=== PATIENT | female | born 1980 | race Caucasian/White ===

== ENCOUNTER → 2016-10-09 | Outpatient (CLI) | payer BC ==
[~2016-10-09] MED LIST: ALPR-411 PO; THYR65TA PO
== END | disposition home or self-care (01) ==
LOC: C.PAPS 12:12
PROVIDERS: ATTEND Obstetrics & Gynecology
DX: Z01.419 Encounter for gynecological examination (general) (routine) without abnormal findings (principal)

== ENCOUNTER → 2016-10-13 | Outpatient (CLI) | payer BC ==
[2016-10-13 16:10] LABS: THYROID STIMULATING HORMONE 3.62 uIu/ml (0.300-4.500)
[2016-10-13 16:12] LABS: PROLACTIN 7.28 ng/mL
== END | disposition home or self-care (01) ==
LOC: C.LAB1850 14:18
PROVIDERS: ATTEND Obstetrics & Gynecology
DX: E06.3 Autoimmune thyroiditis (principal); N97.9 Female infertility, unspecified

== ENCOUNTER → 2016-11-12 | Outpatient (CLI) | payer BC ==
--- NOTE | 2016-11-12 11:30 | DIAGNOSTIC IMAGING REPORT ---
CHEST 2 VIEWS ROUTINE CLINICAL HISTORY: FATIGUE change in mental status COMPARISON STUDY: 10/02/2015 FINDINGS: The bones soft tissues and hemidiaphragms are normal. The cardiomediastinal silhouette is normal. The lungs are clear. The pulmonary vasculature is normal. IMPRESSION: Negative chest. Electronically signed by: Silverio Crump M.D. 11/12/2016 11:29 AM Dictated Date/Time: 11/12/2016 11:29 AM
== END | disposition home or self-care (01) ==
LOC: C.RADBC 11:12
PROVIDERS: ATTEND Physician Assistant
DX: R53.83 Other fatigue (principal)

== ENCOUNTER → 2016-11-13 | Outpatient (CLI) | payer BC ==
[2016-11-13 13:08] LABS: BASO % 0.2 %; BASO ABS # 0.01 K/uL (0-0.2); COMPLETE YES; EOS % 0.9 %; HEMATOCRIT 38.3 % (37-47); LYMPH % 33.1 %; MEAN CELL VOLUME 86.3 fL (80-100); MEAN CORPUSCULAR HEMOGLOBIN 29.3 pg (25-34); MEAN CORPUSCULAR HGB CONC 33.9 g/dl (32-36); MEAN PLATELET VOLUME 9.9 fL (7.4-10.4); MONO % 9.3 %; NEUT % 56.5 %; PLATELET COUNT 293 K/uL (130-400); RED BLOOD COUNT 4.44 M/uL (4.2-5.4); WHITE BLOOD COUNT 4.53 K/uL (4.8-10.8)
[2016-11-13 13:44] LABS: ALT/SGPT 18 U/L (12-78); BLOOD UREA NITROGEN 12 mg/dl (7-18); BUN/CREATININE RATIO 18.5 (10-20); CALCIUM 9.2 mg/dl (8.5-10.1); CARBON DIOXIDE 27 mmol/L (21-32); CHLORIDE 105 mmol/L (98-107); CREATININE 0.62 mg/dl (0.60-1.20); GLUCOSE 77 mg/dl (70-99); POTASSIUM 3.7 mmol/L (3.5-5.1); SODIUM 139 mmol/L (136-145)
[2016-11-13 13:47] LABS: ALB/GLOB RATIO 1.2 (0.9-2); ALKALINE PHOSPHATASE 55 U/L (45-117); AST/SGOT 8 U/L (15-37); RHEUMATOID FACTOR < 10.0 U/mL (0-15)
[2016-11-19 16:21] LABS: ANTI-CENTROMERE AB <1.0 NEG AI (<1.0 NEG); ANTI-SS-A <1.0 NEG AI (<1.0 NEG); ANTI-SS-B <1.0 NEG AI (<1.0 NEG); CYCLIC CITRULLINATED PEPT IGG <16 UNITS (<20); DNA ds CRITHIDIA NEGATIVE (NEGATIVE); DRVVT MIX INTERPRETAION Not Indicated; LAC PTT SCREEN 34 sec (<=40); MICROSOMAL AB 175 IU/ML (<9); Sm Antibody <1.0 NEG AI (<1.0 NEG)
== END | disposition home or self-care (01) ==
LOC: C.LAB 12:24
PROVIDERS: ATTEND Physician Assistant
DX: R53.83 Other fatigue (principal)

== ENCOUNTER → 2016-11-19 | Outpatient (CLI) | payer BC | END | disposition home or self-care (01) | LOC: C.PATHSPEC 17:26 | PROVIDERS: ATTEND Obstetrics & Gynecology | DX: R87.810 Cervical high risk human papillomavirus (HPV) DNA test positive (principal) ==

== ENCOUNTER → 2016-11-26 | Outpatient (CLI) | payer BC ==
[2016-11-26 14:33] LABS: URINE APPEARANCE CLEAR (CLEAR); URINE BILIRUBIN NEG (NEG); URINE COLOR YELLOW; URINE NITRITE NEG (NEG); UROBILINOGEN NEG (NEG)
[2016-11-26 14:42] LABS: MANUAL MICROSCOPIC REQUIRED? NO; REVIEW REQ? NO
== END | disposition home or self-care (01) ==
LOC: C.LABSPEC 13:26
PROVIDERS: ATTEND Obstetrics & Gynecology
DX: R10.2 Pelvic and perineal pain (principal); R87.810 Cervical high risk human papillomavirus (HPV) DNA test positive

== ENCOUNTER → 2016-11-27 | Outpatient (CLI) | payer BC | END | disposition home or self-care (01) | LOC: C.LABBC 10:14 | PROVIDERS: ATTEND Internal Medicine | DX: R53.83 Other fatigue (principal) ==

== ENCOUNTER → 2016-12-03 | Outpatient (CLI) | payer BC ==
[2016-12-03 13:04] LABS: ALB/GLOB RATIO 1.3 (0.9-2); ALKALINE PHOSPHATASE 52 U/L (45-117); AST/SGOT 8 U/L (15-37); BLOOD UREA NITROGEN 12 mg/dl (7-18); BUN/CREATININE RATIO 13.3 (10-20); CARBON DIOXIDE 25 mmol/L (21-32); CHLORIDE 105 mmol/L (98-107); GLUCOSE 88 mg/dl (70-99); POTASSIUM 3.7 mmol/L (3.5-5.1); SODIUM 138 mmol/L (136-145)
[2016-12-03 13:19] LABS: ALT/SGPT 23 U/L (12-78)
[2016-12-03 13:32] LABS: HEMATOCRIT 42.2 % (37-47); MEAN CELL VOLUME 87.2 fL (80-100); MEAN CORPUSCULAR HEMOGLOBIN 30.2 pg (25-34); MEAN CORPUSCULAR HGB CONC 34.6 g/dl (32-36); MEAN PLATELET VOLUME 10.8 fL (7.4-10.4); PLATELET COUNT 286 K/uL (130-400); RED BLOOD COUNT 4.84 M/uL (4.2-5.4); WHITE BLOOD COUNT 5.18 K/uL (4.8-10.8)
[2016-12-07 23:54] LABS: 18KDIGG BAND NONREACTIVE (NONREACTIVE); 23KDIGG BAND NONREACTIVE (NONREACTIVE); 23KDIGM BAND NONREACTIVE (NONREACTIVE); 28KDIGG BAND NONREACTIVE (NONREACTIVE); 30KDIGG BAND NONREACTIVE (NONREACTIVE); 39KDIGG BAND NONREACTIVE (NONREACTIVE); 39KDIGM BAND NONREACTIVE (NONREACTIVE); 41KDIGG BAND REACTIVE (NONREACTIVE); 41KDIGM BAND NONREACTIVE (NONREACTIVE); 45KDIGG BAND NONREACTIVE (NONREACTIVE); 58KDIGG BAND NONREACTIVE (NONREACTIVE); 66KDIGG BAND NONREACTIVE (NONREACTIVE); 93KDIGG BAND NONREACTIVE (NONREACTIVE)
[2016-12-09 02:18] LABS: ANAPLASMA PHAGOCYTOPHIL IGG <1:64 (<1:64); ANAPLASMA PHAGOCYTOPHIL IGM <1:20 (<1:20); EHRLICHIA CHAFF IGG AB <1:64 (<1:64); EHRLICHIA CHAFF IGM AB <1:20 (<1:20); QUANTIFERON NIL 0.11 IU/ML
== END ==
LOC: C.LAB1850 10:02
PROVIDERS: ATTEND Internal Medicine Infectious Disease
DX: E06.3 Autoimmune thyroiditis (principal); R53.83 Other fatigue

== ENCOUNTER → 2016-12-09 | Outpatient (CLI) | payer BC ==
--- NOTE | 2016-12-09 11:13 | DIAGNOSTIC IMAGING REPORT ---
RIGHT HAND MIN 3 VIEWS ROUTINE CLINICAL HISTORY: Hand pain. NACHO positive. COMPARISON: None. DISCUSSION: No fractures are visualized. There is no erosive disease. The bony mineralization appears normal. IMPRESSION: No evidence of fracture. No evidence of erosive disease. Electronically signed by: Kuldeep Sims M.D. 12/09/2016 11:11 AM Dictated Date/Time: 12/09/2016 11:10 AM
--- NOTE | 2016-12-09 11:13 | DIAGNOSTIC IMAGING REPORT ---
CERVICAL SPINE 5 VIEWS CLINICAL HISTORY: Cervicalgia. No reported history of trauma. FINDINGS: AP, lateral, bilateral oblique, and odontoid views of the cervical spine are compared to study dated 05/21/2016. The skeletal structures are well mineralized. There is no radiographic evidence of fracture or subluxation. The odontoid process and lateral masses appear intact on the open mouth view. The spinolaminar line is preserved. Vertebral body height and alignment are maintained. There is straightening of cervical lordosis with mild reversal centered at C4-C5. The spinous processes appear intact. The intervertebral disc spaces are normal. There is no evidence of neuroforaminal stenosis on the oblique views. The prevertebral soft tissues are within normal limits. Visualized apical lung parenchyma appears clear. IMPRESSION: Unremarkable radiographic evaluation of the cervical spine. Electronically signed by: Denton Henley M.D. 12/09/2016 11:11 AM Dictated Date/Time: 12/09/2016 11:10 AM
--- NOTE | 2016-12-09 11:22 | DIAGNOSTIC IMAGING REPORT ---
LEFT HAND 3 VIEWS CLINICAL HISTORY: NACHO positive. Fatigue. Vitamin D deficiency. FINDINGS: 3 views of the left hand are obtained. No prior studies are available for comparison at the time of dictation. The skeletal structures are well mineralized. No fracture is seen. The joint spaces of the hand are well-maintained. No erosive arthropathy is identified. The overlying soft tissues are within normal limits. IMPRESSION: Unremarkable radiographic assessment of the left hand. Electronically signed by: Denton eHnley M.D. 12/09/2016 11:19 AM Dictated Date/Time: 12/09/2016 11:18 AM
[2016-12-09 12:42] LABS: CALCIUM 9.6 mg/dl (8.5-10.1)
[2016-12-10 17:38] LABS: ALBUMIN 4.4 G/DL (3.8-4.8); GAMMA GLOBULIN 0.9 G/DL (0.8-1.7); TOTAL PROTEIN 6.8 G/DL (6.2-8.3)
== END | disposition home or self-care (01) ==
LOC: C.RAD1850 10:23
PROVIDERS: ATTEND Internal Medicine Rheumatology
DX: M54.2 Cervicalgia (principal); E03.9 Hypothyroidism, unspecified; E06.3 Autoimmune thyroiditis; E55.9 Vitamin D deficiency, unspecified; R53.83 Other fatigue; R76.8 Other specified abnormal immunological findings in serum

== ENCOUNTER → 2017-02-10 | Outpatient (CLI) | payer BC ==
--- NOTE | 2017-04-21 08:12 | CODING QUERY NO DIAGNOSIS ---
TREATMENT RENDERED WITHOUT A DIAGNOSIS 80 To promote full compliance with coding requirements relating to patient care, physician participation is requested in all cases of electronic scale tester uncertainty. Please assist us with providing a diagnosis/symptom for the test(s) below: A diagnosis/symptom was not documented on your Order. A valid diagnosis/symptom is required to bill all insurances. Please remember that we are unable to code a diagnosis of rule out, probable, possible, questionable, or suspected. DOS 02/10/17 Tests that require a diagnosis: * H. PYLORI ANTIGEN DIAGNOSIS: Provider Signature: Date: Thank you Nohemy Bain Health Information Management Once completed, please kindly fax back to [phone] For questions please call [phone]
== END | disposition home or self-care (01) ==
LOC: C.LABSPEC 15:00
PROVIDERS: ATTEND Internal Medicine
DX: Z01.89 Encounter for other specified special examinations (principal)

== ENCOUNTER → 2017-03-09 | Outpatient (CLI) | payer BC ==
[2017-03-09 18:54] LABS: LYME DISEASE AB IGM NEG (NEG)
[2017-03-09 18:58] LABS: LYME DISEASE AB IGG NEG (NEG)
== END | disposition home or self-care (01) ==
LOC: C.LABBC 13:35
PROVIDERS: ATTEND Physician Assistant
DX: R53.83 Other fatigue (principal); M54.2 Cervicalgia; S30.861A Insect bite (nonvenomous) of abdominal wall, initial encounter; R51 Headache; R61 Generalized hyperhidrosis; W57.XXXA Bitten or stung by nonvenomous insect and other nonvenomous arthropods, initial encounter

== ENCOUNTER → 2017-05-25 | Outpatient (CLI) | payer BC ==
[2017-05-25 10:44] LABS: THYROID STIMULATING HORMONE 3.59 uIu/ml (0.300-4.500)
== END | disposition home or self-care (01) ==
LOC: C.LAB1850 09:16
PROVIDERS: ATTEND Internal Medicine Endocrinology, Diabetes & Metabolism
DX: E03.9 Hypothyroidism, unspecified (principal)

== ENCOUNTER → 2017-10-18 | Outpatient (CLI) | payer BC ==
[2017-10-19 06:36] LABS: HEMOGLOBIN A1C 5.2 % (4.5-5.6)
== END | disposition home or self-care (01) ==
LOC: C.LAB1850 13:32
PROVIDERS: ATTEND Internal Medicine Endocrinology, Diabetes & Metabolism
DX: Z00.00 Encounter for general adult medical examination without abnormal findings (principal); E06.3 Autoimmune thyroiditis; M62.81 Muscle weakness (generalized); E28.2 Polycystic ovarian syndrome; E55.9 Vitamin D deficiency, unspecified

== ENCOUNTER 2017-12-27 19:13 | Inpatient (IN) | payer BC ==
[~2017-12-27] VITALS: Ht 165.1 cm; Wt 52.8 kg
[2017-12-27] MEDS ORDERED: ONDANSETRON INJ 2 MG/ML 2 ML VIAL IV STA ×2 (19:38→22:02)
[2017-12-27] MEDS ORDERED: SODIUM CHLORIDE 0.9% 1000ML 1,000 ML IV STA ×2 (19:38→20:51)
[2017-12-27 19:47] LABS: BASO % 0.2 %; BASO ABS # 0.02 K/uL (0-0.2); EOS % 0.2 %; EOS ABS # 0.02 K/uL (0-0.5); HEMATOCRIT 38.1 % (37-47); HEMOGLOBIN 13.5 g/dL (12.0-16.0); IG# 0.02 K/uL (0.00-0.02); LYMPH % 17.1 %; LYMPH ABS # 2.19 K/uL (1.2-3.4); MEAN CELL VOLUME 87.2 fL (80-100); MEAN CORPUSCULAR HEMOGLOBIN 30.9 pg (25-34); MEAN CORPUSCULAR HGB CONC 35.4 g/dl (32-36); MEAN PLATELET VOLUME 9.7 fL (7.4-10.4); MONO % 5.3 %; MONO ABS # 0.68 K/uL (0.11-0.59); NEUT ABS # 9.87 K/uL (1.4-6.5); PLATELET COUNT 284 K/uL (130-400); RED CELL DISTRIBUTION WIDTH CV 13.3 % (11.5-14.5); RED CELL DISTRIBUTION WIDTH SD 42.7 fL (36.4-46.3)
--- NOTE | 2017-12-27 19:51 | EMERGENCY ROOM VISIT NOTE ---
ED Visit Note First contact with patient: 19:26 CHIEF COMPLAINT: Abdominal pain HISTORY OF PRESENTING ILLNESS: This is a 37-year-old female who presents to the emergency department with complaint of severe abdominal pain that started yesterday and became severely worse earlier today. She states the pain has been constant and progressively worsening, involves the entire abdomen and radiates into her mid back bilaterally. She states the pain is sharp and also pressure-like, worse with movement, better with rest, currently rates as 8/10. She reports some urinary frequency and urgency and reports some pressure with urination, but denies any dysuria or hematuria. She has had associated severe nausea and chills, she denies any fevers, vomiting, bloody or black stools. She has not been eating or drinking well today because of the nausea. She states that she did have a few episodes of watery diarrhea 2 days ago, but now she has been having loose bowel movements since that time. She tried Mylanta for the nausea, but has not tried any [id number] pain medications for her abdominal pain. She denies any history of abdominal surgeries. She a previous episode of similar symptoms a few years ago with severe vomiting that required hospitalization for dehydration. Her last menstrual period was 1 week ago, she denies concerns for . She denies any other associated symptoms of headaches, neck pain or stiffness, chest pain, shortness of breath, numbness or weakness of the extremities, bowel or bladder dysfunction, or unusual rash. REVIEW OF SYSTEMS: A complete 10 point review of systems was reviewed with the patient with pertinent positives and negatives as per history of present illness. All else were negative. PAST MEDICAL HISTORY: Reviewed in chart SOCIAL HISTORY: Lives at home. She and occasional smoker. ALLERGIES: No known allergies. PHYSICAL EXAM: CONSTITUTIONAL: Pleasant and cooperative. No acute distress, but obviously uncomfortable and in pain. Mildly dehydrated, but otherwise well appearing and well nourished. HEENT: Normocephalic, atraumatic. Pupils equal, round and reactive to light, EOMI. TMs normal. Pharynx normal. Tacky mucous membranes. NECK: Supple, full active range of motion without discomfort. RESPIRATORY: Clear to auscultation bilaterally with no wheezing, crackles, rhonchi or stridor. Equal expansion bilaterally. CARDIOVASCULAR: Regular rate and rhythm with no murmurs, rubs or gallops. Normal peripheral perfusion. No edema. GASTROINTESTINAL: Soft, nondistended. Diffusely tender throughout the entire abdomen, most tender in the epigastric and upper quadrants. No rebound tenderness or guarding. No palpable masses or HSM. Bowel sounds present in all quadrants. Mild CVA tenderness bilaterally. MUSCULOSKELETAL: Full range of motion of all joints without discomfort. INTEGUMENTARY: No rash or other significant dermatologic conditions noted. NEUROLOGIC: Alert and oriented X 4 with normal affect. Normal strength and sensation in all 4 extremities. No focal neurologic deficits noted. Normal speech. Normal gait observed. ED COURSE AND MEDICAL DECISION MAKING: CC: Patient presenting with complaint of abdominal pain DIFFERENTIAL DIAGNOSIS: Includes, but not limited to diverticulitis, colitis, gastroenteritis/food poisoning, UTI, pyelonephritis, ureteral stone, appendicitis, mesenteric adenitis, ectopic , gastritis, cholecystitis, pancreatitis, small bowel obstruction, among others. INTERPRETATION OF LABS: Mild leukocytosis with left shift, no anemia, hypokalemia, no other significant electrolyte abnormalities, normal renal function, normal liver enzymes and lipase. UA consistent with moderate dehydration, negative for infection. Negative urine . IMAGING: ABD/PELVIS IV CONTRAST ONLY CT DOSE: 243.73 mGy.cm HISTORY: Pain severe diffuse abd pain, nausea and vomiting TECHNIQUE: Multiaxial CT images of the abdomen and pelvis were performed following the use of intravenous contrast. A dose lowering technique was utilized adhering to the principles of ALARA. COMPARISON STUDY: None. FINDINGS: Lung bases are clear. Liver spleen and pancreas are uniform in appearance. The kidneys are negative for hydronephrosis. There are several small reactive nodes of the upper abdomen as well as retroperitoneal region. Gallbladder is negative for distention. The absence of oral contrast makes the study are extremely difficult to interpret. Possibility of a slight degree of colonic wall edema is considered. The appendix is not seen diagnostically on this exam. I cannot confirm or exclude the possibility of appendicitis based on this study. Uterus is anteflexed. There is a small amount of free fluid within the pelvic cul-de-sac. There appear to be small bilateral ovarian cysts. IMPRESSION: 1. Very limited study as the colon is not opacified with oral contrast. 2. The appendix is not identified with absolute certainty with a suggestion raised of possible mild degree of colonic wall thickening versus technical artifact raised.. 3. It Is recommended this study be repeated with oral contrast to confirm or exclude the possibility of colitis versus appendicitis . MEDICATION RECONCILIATION: I attest that I have personally reviewed the patient 's current medication list. INITIAL VITAL SIGNS REVIEW: I reviewed the patient's initial vital signs and interpret them as follows: T: Afebrile; BP: Normotensive; HR: Within normal limits; RR: Within normal limits; Pulse Ox: Within normal limits on room air. Blood pressure screening: The patient was found to have normal blood pressure on screening and does not require follow-up for repeat blood pressure check. SUMMARY: Patient was evaluated at bedside, history and physical exam performed. Patient is alert and oriented, in no acute distress, but is obviously uncomfortable and in pain, resting in the stretcher. Patient's abdomen is tender throughout, no rebound or guarding, soft and nondistended. Normal bowel sounds. Patient complaining of severe nausea and does not think she will be able to tolerate oral contrast. CT abdomen/pelvis with IV contrast only was ordered to evaluate patient's abdominal pain. Orders were placed at bedside for labs, UA and urine , IV fluids for hydration, IV Zofran for nausea. Patient was offered IV morphine for pain, she declined at this time. Patient discussed with Dr. Carr, who agrees with my assessment and plan. Nursing called, patient still nauseated after Zofran and is now vomiting, and is now requesting pain medication. IV morphine 4mg and Phenergan ordered. Labs and imaging reviewed as above, unable to fully rule out appendicitis due to lack of oral contrast, but no obvious evidence for appendicitis, abscess collection, or obstruction. Given patient's recent diarrhea, as well as having persistent nausea and vomiting with diffuse abdominal symptoms, I feel gastroenteritis may be more likely. Serial abdominal exams were performed on the patient while she was in the emergency department, she continued to complain of severe abdominal pain and nausea, but at no time did she exhibit symptoms of acute abdomen. Patient's nausea and abdominal pain were transiently improved after Phenergan and morphine. She is noted to be hypokalemic on labs, IV and oral replacement were ordered. I discussed the option of performing a second CT with oral contrast with the patient, she continues to vomit and have dry heaves, and does not think she can tolerate oral contrast. Given the patient's diffuse abdominal pain, primarily in the upper quadrants, I doubt appendicitis clinically at this time. I do feel patient most likely has some form of gastritis or gastroenteritis. Patient continues to complain of severe abdominal pain and continues to have nausea and vomiting, she was given a second dose of IV Zofran, as well as IV Pepcid and a GI cocktail. Patient reassessed multiple times throughout ED stay, she continues to complain of 8/10 pain and persistent nausea with vomiting, states she does not feel any better and does not feel comfortable going home. She has been unable to tolerate oral potassium replacement as well. I spoke with Dr. See, hospitalist, regarding the patient's symptoms and requested admission for continued hydration and nausea management, he agreed to evaluate the patient for admission. Patient was updated on all results and plan for admission, she verbalized understanding and was agreeable to this plan. Problem List Medical Problems: (1) Stomach problems Status: Chronic (2) Urinary problem Status: Chronic Current/Historical Medications Scheduled Albuterol Sulfate (Proair Respiclick), PUFF INH PRN UD Cholecalciferol (Vitamin D), 5,000 UNITS PO DAILY Milk Thistle (Silybum [place]um (Milk Thistle), 1 CAP PO DAILY Multivitamins/Minerals (Mvi With Minerals), 1 TAB PO DAILY Turmeric (Curcuma Longa) (Turmeric), 1 TAB PO DAILY [Gold Seal], 1 TAB PO DAILY Allergies Coded Allergies: No Known Allergies (Unverified , 10/02/15) Vital Signs Date Time Temp Pulse Resp B/P (MAP) Pulse Ox O2 Delivery O2 Flow Rate FiO2 12/27/17 23:18 72 12/27/17 22:24 83 16 114/78 100 Room Air 12/27/17 21:06 70 16 138/82 100 Room Air 12/27/17 19:53 64 12/27/17 19:15 36.5 70 16 136/79 100 Room Air Laboratory Results 12/27/17 19:28 Red Blood Count 4.37, Mean Corpuscular Volume 87.2, Mean Corpuscular Hemoglobin 30.9, Mean Corpuscular Hemoglobin Concent 35.4, Mean Platelet Volume 9.7, Neutrophils (%) (Auto) 77.0, Lymphocytes (%) (Auto) 17.1, Monocytes (%) (Auto) 5.3, Eosinophils (%) (Auto) 0.2, Basophils (%) (Auto) 0.2, Neutrophils # (Auto) 9.87, Lymphocytes # (Auto) 2.19, Monocytes # (Auto) 0.68, Eosinophils # (Auto) 0.02, Basophils # (Auto) 0.02 12/27/17 19:28 Test 12/27/17 19:28 White Blood Count 12.80 K/uL (4.8-10.8) Red Blood Count 4.37 M/uL (4.2-5.4) Hemoglobin 13.5 g/dL (12.0-16.0) Hematocrit 38.1 % (37-47) Mean Corpuscular Volume 87.2 fL (80-100) Mean Corpuscular Hemoglobin 30.9 pg (25-34) Mean Corpuscular Hemoglobin Concent 35.4 g/dl (32-36) Platelet Count 284 K/uL (130-400) Mean Platelet Volume 9.7 fL (7.4-10.4) Neutrophils (%) (Auto) 77.0 % Lymphocytes (%) (Auto) 17.1 % Monocytes (%) (Auto) 5.3 % Eosinophils (%) (Auto) 0.2 % Basophils (%) (Auto) 0.2 % Neutrophils # (Auto) 9.87 K/uL (1.4-6.5) Lymphocytes # (Auto) 2.19 K/uL (1.2-3.4) Monocytes # (Auto) 0.68 K/uL (0.11-0.59) Eosinophils # (Auto) 0.02 K/uL (0-0.5) Basophils # (Auto) 0.02 K/uL (0-0.2) RDW Standard Deviation 42.7 fL (36.4-46.3) RDW Coefficient of Variation 13.3 % (11.5-14.5) Immature Granulocyte % (Auto) 0.2 % Immature Granulocyte # (Auto) 0.02 K/uL (0.00-0.02) Urine Color YELLOW Urine Appearance CLEAR (CLEAR) Urine pH 5.5 (4.5-7.5) Urine Specific [place] 1.016 (1.000-1.030) Urine Protein NEG (NEG) Urine Glucose (UA) NEG (NEG) Urine Ketones 3+ (NEG) Urine Occult Blood NEG (NEG) Urine Nitrite NEG (NEG) Urine Bilirubin NEG (NEG) Urine Urobilinogen NEG (NEG) Urine Leukocyte Esterase NEG (NEG) Urine Test NEG (NEG) Anion Gap 11.0 mmol/L (3-11) Est Creatinine Clear Calc Drug Dose 83.4 ml/min Estimated GFR () 114.3 Estimated GFR (Non- 98.6 BUN/Creatinine Ratio 10.6 (10-20) Calcium Level 8.7 mg/dl (8.5-10.1) Magnesium Level 1.9 mg/dl (1.8-2.4) Total Bilirubin 0.9 mg/dl (0.2-1) Direct Bilirubin 0.2 mg/dl (0-0.2) Aspartate Amino Transf (AST/SGOT) 13 U/L (15-37) Alanine Aminotransferase (ALT/SGPT) 21 U/L (12-78) Alkaline Phosphatase 54 U/L (45-117) Total Protein 7.7 gm/dl (6.4-8.2) Albumin 4.3 gm/dl (3.4-5.0) Lipase 98 U/L (73-393) Medications Administered Medications (Trade) Dose Ordered Sig/Ambika Route Start Time Stop Time Status Last Admin Dose Admin Sodium Chloride 1,000 ml @ 999 mls/hr Q1H1M STAT IV 12/27/17 19:38 12/27/17 20:38 DC 12/27/17 19:47 999 MLS/HR Ondansetron HCl (Zofran Inj) 4 mg NOW STAT IV 12/27/17 19:38 12/27/17 19:41 DC 12/27/17 19:46 4 MG Morphine Sulfate (MoRPHine SULFATE INJ) 4 mg NOW STAT IV 12/27/17 20:51 12/27/17 20:55 DC 12/27/17 20:59 4 MG Promethazine HCl 25 mg/Sodium Chloride 51 ml @ 204 mls/hr NOW STAT IV 12/27/17 20:51 12/27/17 21:05 DC 12/27/17 21:23 204 MLS/HR Sodium Chloride 1,000 ml @ 999 mls/hr Q1H1M STAT IV 12/27/17 20:51 12/27/17 21:51 DC 12/27/17 20:59 999 MLS/HR Potassium Chloride (KCL 10 mEq / WTR) 20 meq NOW STAT IV 12/27/17 20:51 5/7/18 20:55 DC 12/27/17 20:58 20 MEQ Potassium Chloride (Klor-Con M10) 40 meq NOW STAT PO 12/27/17 20:51 12/27/17 20:55 DC 12/27/17 20:59 40 MEQ Miscellaneous Medication (Gi Cocktail) 24 ml NOW STAT PO 12/27/17 22:00 12/27/17 22:02 DC 12/27/17 22:12 24 ML Famotidine (Pepcid 20mg Iv Push) 20 mg ONE STAT IV 12/27/17 22:00 12/27/17 22:02 DC 12/27/17 22:12 20 MG Ondansetron HCl (Zofran Inj) 4 mg NOW STAT IV 12/27/17 22:02 12/27/17 22:06 DC 12/27/17 22:12 4 MG Dicyclomine HCl (Bentyl Inj) 20 mg NOW ONCE IM 12/27/17 23:45 12/27/17 23:46 12/27/17 23:41 20 MG Departure Information Impression Primary Impression: Abdominal pain Additional Impressions: Intractable vomiting with nausea Dehydration Hypokalemia Dispostion Being Evaluated By Hospitalist Condition FAIR Referrals Liberty Coelho D.O. (PCP) Patient Instructions My [facility] Health Problem Qualifiers Primary Impression: Abdominal pain Abdominal location: generalized Qualified Codes: R10.84 - Generalized abdominal pain Additional Impressions: Intractable vomiting with nausea Vomiting type: unspecified Qualified Codes: R11.2 - Nausea with vomiting, unspecified
[2017-12-27 19:54] LABS: ALBUMIN 4.3 gm/dl (3.4-5.0); CALCIUM 8.7 mg/dl (8.5-10.1); CREATININE 0.77 mg/dl (0.60-1.20); POTASSIUM 2.9 mmol/L (3.5-5.1)
[2017-12-27 19:57] LABS: TOTAL PROTEIN 7.7 gm/dl (6.4-8.2)
[2017-12-27] MEDS ORDERED: OPTIRAY 320 IV PRN (20:30)
--- NOTE | 2017-12-27 20:30 | DIAGNOSTIC IMAGING REPORT ---
ABD/PELVIS IV CONTRAST ONLY CT DOSE: 243.73 mGy.cm HISTORY: Pain severe diffuse abd pain, nausea and vomiting TECHNIQUE: Multiaxial CT images of the abdomen and pelvis were performed following the use of intravenous contrast. A dose lowering technique was utilized adhering to the principles of ALARA. COMPARISON STUDY: None. FINDINGS: Lung bases are clear. Liver spleen and pancreas are uniform in appearance. The kidneys are negative for hydronephrosis. There are several small reactive nodes of the upper abdomen as well as retroperitoneal region. Gallbladder is negative for distention. The absence of oral contrast makes the study are extremely difficult to interpret. Possibility of a slight degree of colonic wall edema is considered. The appendix is not seen diagnostically on this exam. I cannot confirm or exclude the possibility of appendicitis based on this study. Uterus is anteflexed. There is a small amount of free fluid within the pelvic cul-de-sac. There appear to be small bilateral ovarian cysts. IMPRESSION: 1. Very limited study as the colon is not opacified with oral contrast. 2. The appendix is not identified with absolute certainty with a suggestion raised of possible mild degree of colonic wall thickening versus technical artifact raised.. 3. It Is recommended this study be repeated with oral contrast to confirm or exclude the possibility of colitis versus appendicitis . The above report was generated using voice recognition software. It may contain grammatical, syntax or spelling errors. Electronically signed by: Silverio Crump M.D. 12/27/2017 8:29 PM Dictated Date/Time: 12/27/2017 8:23 PM
[2017-12-27] MEDS ORDERED: QVRINH80 (20:46)
[2017-12-27] MEDS ORDERED: ERGO500011 (20:46)
[2017-12-27] MEDS ORDERED: ALBU18002 INH (20:46)
[2017-12-27] MEDS ORDERED: PROMETHAZINE HCL INJ 25 MG in SODIUM CHLORIDE 0.9% 50ML 50 ML IV STA (20:51)
[2017-12-27] MEDS: POTASSIUM CHLORIDE 10 MEQ TABCR PO STA ×2 (20:51→20:59)
[2017-12-27] MEDS ORDERED: POTASSIUM CHLORIDE 10 MEQ / 100ML WTR IV STA (20:51)
[2017-12-27] MEDS ORDERED: MoRPHine SULFATE 4 MG/ML 1 ML CARP\\VIAL IV STA (20:51)
[2017-12-27] MEDS ORDERED: CHOL1TAB42 PO (21:06)
[2017-12-27] MEDS ORDERED: TURM1CAP2 PO (21:11)
[2017-12-27] MEDS ORDERED: [UNRECOGNIZED DRUG - OTHER] PO (21:11)
[2017-12-27] MEDS ORDERED: MULT-513 PO (21:11)
[2017-12-27] MEDS ORDERED: MILK140C PO (21:11)
[2017-12-27] MEDS ORDERED: GI COCKTAIL PO STA (22:00)
[2017-12-27] MEDS ORDERED: FAMOTIDINE 20MG/5ML IV PUSH IV STA (22:00)
[2017-12-27] MEDS ORDERED: LIDOCAINE HCL 2% VISC SOLN 20 ML UDC ONE (22:04)
[2017-12-27] MEDS ORDERED: ALUMINUM/MAGNESIUM SUSP 30 ML UDC ONE (22:04)
[2017-12-27] MEDS ORDERED: DICYCLOMINE HCL 10 MG/ML 2 ML AMP IM ONE (23:45)
[2017-12-28] MEDS ORDERED: METOCLOPRAMIDE HCL INJ 5 MG/ML 2 ML VIAL IV PRN
[2017-12-28] MEDS ORDERED: PROCHLORPERAZINE INJ 5 MG in SYRINGE 4 ML IV PRN
[2017-12-28] MEDS ORDERED: TRAMADOL HCL 50 MG TAB PO PRN
[2017-12-28] MEDS ORDERED: KETOROLAC TROMETHAMINE 15 MG/ML VIAL IV. PRN
[2017-12-28] MEDS ORDERED: PANTOprazole INJ 40 MG in SYRINGE 0 ML IV STA (00:52)
[2017-12-28] MEDS ORDERED: LORAZEPAM 2 MG/ML 1 ML VIAL IV PRN (01:00)
[2017-12-28 01:25] VITALS: BP 122/76; PULSE 79; TEMP 36.9; O2SAT 100; Ht 165.1 cm; Wt 52.8 kg
[2017-12-28] MEDS ORDERED: IV FLUIDS COMPLETED PRN (01:30)
[2017-12-28] MEDS ORDERED: NSS + 20MEQ KCL 1000ML 1,000 ML IV SCH (02:00)
[2017-12-28 02:11] LABS: HEMATOCRIT 36.4 % (37-47); HEMOGLOBIN 12.5 g/dL (12.0-16.0); MEAN CELL VOLUME 87.5 fL (80-100); MEAN CORPUSCULAR HGB CONC 34.3 g/dl (32-36); MEAN PLATELET VOLUME 9.5 fL (7.4-10.4); PLATELET COUNT 256 K/uL (130-400); RED CELL DISTRIBUTION WIDTH CV 13.3 % (11.5-14.5); RED CELL DISTRIBUTION WIDTH SD 42.6 fL (36.4-46.3); WHITE BLOOD COUNT 16.11 K/uL (4.8-10.8)
[2017-12-28] MEDS: MoRPHine SULFATE 4 MG/ML 1 ML CARP\\VIAL IV PRN ×2 (02:26→05:35)
[2017-12-28 02:38] LABS: IG# 0.04 K/uL (0.00-0.02); LYMPH % 3.2 %; LYMPH ABS # 0.51 K/uL (1.2-3.4); MONO % 0.9 %; MONO ABS # 0.14 K/uL (0.11-0.59); NEUT % 95.7 %; NEUT ABS # 15.42 K/uL (1.4-6.5)
[2017-12-28 02:39] LABS: PTT PATIENT 24.7 SECONDS (21.0-31.0)
[2017-12-28 02:43] LABS: CALCIUM 7.6 mg/dl (8.5-10.1); CREATININE 0.61 mg/dl (0.60-1.20); POTASSIUM 3.9 mmol/L (3.5-5.1)
[2017-12-28] MEDS ORDERED: CALCIUM GLUCONATE 10% 1,000 MG in SODIUM CHLORIDE 0.9% 50ML 50 ML IV STA (03:19)
[2017-12-28] MEDS ORDERED: METRONIDAZOLE / NSS 500 MG in PREMIXED NSS 100 ML IV ONE (03:30)
[2017-12-28 06:58] VITALS: BP 102/65; PULSE 77; TEMP 37; O2SAT 98
[2017-12-28] MEDS: CEROVITE ADV FORMULA TAB PO SCH (08:14)
--- NOTE | 2017-12-28 09:52 | HISTORY & PHYSICAL EXAMINATION ---
DATE OF ADMISSION: 12/28/2017 PRIMARY CARE PHYSICIAN: Dr. Coelho. The patient seen on 12/28/2017. CHIEF COMPLAINT: Abdominal pain. HISTORY OF PRESENT ILLNESS: History obtained from the patient and records. 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 Few days history of epigastric pain, burning, nausea, loose stools. Denies sick contacts. Some chills. No recent travel. No recent antibiotics. Denies dysuria. Intractable pain at the Emergency Room. Medical history as above. : Seen at PCP's office a few months ago. Outpatient workup for exertional shortness of breath symptoms pending. SURGERIES: Gynecologic procedures. HOME MEDICATIONS: Include ProAir, vitamin D, multivitamins, turmeric. ALLERGIES: No known drug allergies. FAMILY HISTORY: Hypertension. PERSONAL AND SOCIAL HISTORY: Nonsmoker, no chronic intake of alcoholic beverage. Works from home. REVIEW OF SYSTEMS: As per HPI, all 10 systems reviewed. All other ROS negative. PHYSICAL EXAMINATION: VITAL SIGNS: Blood pressure was noted to be 120/80, pulse rate 80, RR 16, T 37 O2 sats 100 on room air. GENERAL: Noted to be uncomfortable, no acute distress. SKIN: Normal color, warm. hyposthenic. HEENT : [place] palpebral conjunctivae, no ptosis, dry buccal mucosa NECK: Supple, nontender. CHEST: Clear to auscultation. HEART: Regular rate and rhythm, no murmur. ABDOMEN: Epigastric tenderness, some distention. EXTREMITIES: No edema. No tenderness, no gross deformities NEUROLOGIC: Coherent, no facial asymmetry, no gross focality. LABS: Hemoglobin was noted to be at 13.5, hematocrit 31, white cell count 12.8, platelets noted to be 284. Sodium noted to be 135, potassium 2.9 chloride 104 creatinine 1, glucose was noted to be 97. LFTs, lipase normal CT abdomen and pelvis, initial read very limited study. Appendix not identified. Mild degree colonic wall thickening versus technical artifact. UA ketones. ASSESSMENT AND PLAN: 1. Intractable abdominal pain, diarrhea likely viral gastroenteritis. rule out Clostridium difficile. 2. History of small bowel bacterial overgrowth syndrome sp antibiotic rx 2016 3. Hypokalemia secondary to illness. 4. hx Babesiosis sp rx GMF Observation supportive measure for enteritis. Stool C. diff. Replace potassium. PPI trial for possible reflux with burning description of upper abdominal pain May need GI consult if symptoms unimproved in the morning. DVT Prophylaxis SCDs. Full code. MTDD
[2017-12-28] MEDS ORDERED: CALCIUM GLUCONATE 10% 1,000 MG in SODIUM CHLORIDE 0.9% 50ML 50 ML IV SCH (11:45)
--- NOTE | 2017-12-28 11:55 | Surgery Consultation ---
Consultation Date of Consultation: December 28, 2017. Attending Physician: Melissa Pollack DO History of Present Illness CHIEF COMPLAINT: Abdominal pain HISTORY OF PRESENTING ILLNESS: This is a 37-year-old female who presents to the emergency department with complaint of severe abdominal pain that started yesterday and became severely worse earlier today. She states the pain has been constant and progressively worsening, involves the entire abdomen and radiates into her mid back bilaterally. She states the pain is sharp and also pressure-like, worse with movement, better with rest, currently rates as 8/10. She reports some urinary frequency and urgency and reports some pressure with urination, but denies any dysuria or hematuria. She has had associated severe nausea and chills, she denies any fevers, vomiting, bloody or black stools. She has not been eating or drinking well today because of the nausea. She states that she did have a few episodes of watery diarrhea 2 days ago, but now she has been having loose bowel movements since that time. She tried Mylanta for the nausea, but has not tried any [id number] pain medications for her abdominal pain. She denies any history of abdominal surgeries. She a previous episode of similar symptoms a few years ago with severe vomiting that required hospitalization for dehydration. Her last menstrual period was 1 week ago, she denies concerns for . She denies any other associated symptoms of headaches, neck pain or stiffness, chest pain, shortness of breath, numbness or weakness of the extremities, bowel or bladder dysfunction, or unusual rash. I got a call for consult appendicitis or colitis, I reviewed pt's H/P with pt, pt said that she feels better after she got IV antibiotic, pt had abdominal pain with nausea and vomiting in the past. now pt feels some less abdominal pain , no nausea, no vomiting, pt 's last BM yesterday, pt had colonoscopy done 2 years ago which was normal. Past Medical/Surgical History Medical Problems: (1) Abdominal pain Status: Acute (2) Dehydration Status: Acute (3) Hypokalemia Status: Acute (4) Intractable vomiting with nausea Status: Acute Family History FH: cancer FH: hypertension Hypertension Social History Smoking Status: Current Some Day Smoker Smokeless Tobacco Use: No Alcohol Use: occasionally Drug Use: none Marital Status: single Housing Status: unknown Occupation Status: employed Allergies Coded Allergies: No Known Allergies (Unverified , 10/02/15) Home Medications Scheduled Albuterol Sulfate (Proair Respiclick), PUFF INH PRN UD Cholecalciferol (Vitamin D), 5,000 UNITS PO DAILY Milk Thistle (Silybum Marianum (Milk Thistle), 1 CAP PO DAILY Multivitamins/Minerals (Mvi With Minerals), 1 TAB PO DAILY Turmeric (Curcuma Longa) (Turmeric), 1 TAB PO DAILY [Gold Seal], 1 TAB PO DAILY Current Inpatient Medications Current Inpatient Medications Medications (Trade) Dose Ordered Sig/Ambika Route Start Time Stop Time Status Last Admin Dose Admin Ioversol (Optiray 320) 125 ml UD PRN IV 12/27/17 20:30 12/31/17 20:29 Tramadol HCl (Ultram Tab) not relieved by tylenol @ Q6H PRN PO 12/28/17 00:00 01/27/18 00:00 Prochlorperazine Edisylate 5 mg/ Syringe 5 ml @ 5 mls/min Q6H PRN IV 12/28/17 00:00 01/27/18 00:00 12/28/17 06:23 5 MLS/MIN Ondansetron HCl (Zofran Inj) 4 mg Q6H PRN IV 12/28/17 00:00 01/27/18 00:00 Metoclopramide HCl (Reglan Inj) 10 mg Q6H PRN IV 12/28/17 00:00 01/27/18 00:00 12/28/17 01:46 10 MG Acetaminophen (Tylenol Tab) 650 mg Q4H PRN PO 12/28/17 01:00 01/27/18 00:59 Potassium Chloride/Sodium Chloride 1,000 ml @ 80 mls/hr [id number] IV 12/28/17 02:00 12/28/17 14:29 12/28/17 02:19 80 MLS/HR Multivitamins/ Minerals (Multivitamin W/ Minerals Tab) 1 tab DAILY PO 12/28/17 08:00 01/27/18 08:59 12/28/17 08:14 1 TAB Morphine Sulfate (MoRPHine SULFATE INJ) 2 mg Q3H PRN IV 12/28/17 01:00 01/11/18 00:59 12/28/17 05:35 2 MG Lorazepam (Ativan Inj) 0.5 mg Q4H PRN IV 12/28/17 01:00 01/27/18 00:59 Miscellaneous (Iv Fluids Completed) 1 ea PRN PRN N/A 12/28/17 01:30 12/28/18 01:29 Calcium Gluconate 1000 mg/Sodium Chloride 60 ml @ 240 mls/hr NOW IV 12/28/17 11:45 01/27/18 11:44 UNV Review of Systems Constitutional: No fever, No chills, No sweats, No weight loss, No weakness, No fatigue, No problem reported Eyes: No worsening of vision, No eye pain, No redness, No discharge, No diplopia, No problem reported ENT: No hearing loss, No unusual epistaxis, No nasal symptoms, No sore throat, No tinnitus, No dental problems, No trouble swallowing, No problem reported Respiratory: No cough, No sputum, No wheezing, No shortness of breath, No dyspnea on exertion, No dyspnea at rest, No hemoptysis, No problem reported Cardiovascular: No chest pain, No orthopnea, No PND, No edema, No claudication , No palpitations, No problem reported Abdomen: + pain, + nausea, + vomiting Genitourinary - Female: No dysuria, No urinary frequency, No urinary urgency, No urinary incontinence, No urinary retention, No hematuria, No dysmenorrhea, No menorrhagia, No metrorrhagia, No rash, No vaginal bleeding, No vaginal discharge, No vaginal itching, No vulvodynia, No , No problem reported Neurologic: No memory loss, No paralysis, No weakness, No numbness/tingling, No vertigo, No balance problems, No problem reported Psychiatric: No depression symptoms, No anhedonism, No anxiety, No insomnia, No substance abuse, No problem reported Endocrine: No fatigue, No excessive thirst, No excessive urination, No problem reported Hematologic / Lymphatic: No abnormal bleeding/bruising, No clotting problems, No swollen lymph nodes, No night sweats, No problem reported Physical Exam Date Time Temp Pulse Resp B/P (MAP) Pulse Ox O2 Delivery O2 Flow Rate FiO2 12/28/17 06:58 37.0 77 16 102/65 (77) 98 Room Air 12/28/17 01:25 36.9 79 16 122/76 100 Room Air 12/28/17 01:09 36.8 70 16 119/62 100 Room Air 12/28/17 00:05 72 16 120/70 100 Room Air 12/27/17 23:18 72 12/27/17 22:24 83 16 114/78 100 Room Air 12/27/17 21:06 70 16 138/82 100 Room Air 12/27/17 19:53 64 12/27/17 19:15 36.5 70 16 136/79 100 Room Air General Appearance: WD/WN, no apparent distress Head: normocephalic Eyes: normal inspection ENT: normal ENT inspection Neck: supple, no JVD Respiratory/Chest: chest non-tender, lungs clear, normal breath sounds, no respiratory distress Cardiovascular: regular rate, rhythm, no edema, no gallop, no JVD, no murmur Abdomen/GI: normal bowel sounds, soft (no distended), no organomegaly, no pulsatile mass, + tenderness (slightly tenderness periumbilical area, no rebound pain, ) Extremities/Musculoskelatal: normal inspection, no calf tenderness, normal capillary refill Neurologic/Psych: no motor/sensory deficits, alert, normal mood/affect, oriented x 3 Skin: normal color, warm/dry, no rash Laboratory Results Last 24 Hours Test 12/27/17 19:28 12/28/17 01:59 White Blood Count 12.80 K/uL 16.11 K/uL Red Blood Count 4.37 M/uL 4.16 M/uL Hemoglobin 13.5 g/dL 12.5 g/dL Hematocrit 38.1 % 36.4 % Mean Corpuscular Volume 87.2 fL 87.5 fL Mean Corpuscular Hemoglobin 30.9 pg 30.0 pg Mean Corpuscular Hemoglobin Concent 35.4 g/dl 34.3 g/dl Platelet Count 284 K/uL 256 K/uL Mean Platelet Volume 9.7 fL 9.5 fL Neutrophils (%) (Auto) 77.0 % 95.7 % Lymphocytes (%) (Auto) 17.1 % 3.2 % Monocytes (%) (Auto) 5.3 % 0.9 % Eosinophils (%) (Auto) 0.2 % 0.0 % Basophils (%) (Auto) 0.2 % 0.0 % Neutrophils # (Auto) 9.87 K/uL 15.42 K/uL Lymphocytes # (Auto) 2.19 K/uL 0.51 K/uL Monocytes # (Auto) 0.68 K/uL 0.14 K/uL Eosinophils # (Auto) 0.02 K/uL 0.00 K/uL Basophils # (Auto) 0.02 K/uL 0.00 K/uL RDW Standard Deviation 42.7 fL 42.6 fL RDW Coefficient of Variation 13.3 % 13.3 % Immature Granulocyte % (Auto) 0.2 % 0.2 % Immature Granulocyte # (Auto) 0.02 K/uL 0.04 K/uL Urine Color YELLOW Urine Appearance CLEAR Urine pH 5.5 Urine Specific [place] 1.016 Urine Protein NEG Urine Glucose (UA) NEG Urine Ketones 3+ Urine Occult Blood NEG Urine Nitrite NEG Urine Bilirubin NEG Urine Urobilinogen NEG Urine Leukocyte Esterase NEG Urine Test NEG Sodium Level 138 mmol/L 136 mmol/L Potassium Level 2.9 mmol/L 3.9 mmol/L Chloride Level 104 mmol/L 106 mmol/L Carbon Dioxide Level 23 mmol/L 21 mmol/L Anion Gap 11.0 mmol/L 9.0 mmol/L Blood Urea Nitrogen 8 mg/dl 5 mg/dl Creatinine 0.77 mg/dl 0.61 mg/dl Est Creatinine Clear Calc Drug Dose 83.4 ml/min 105.3 ml/min Estimated GFR () 114.3 134.2 Estimated GFR (Non- 98.6 115.8 BUN/Creatinine Ratio 10.6 8.6 Random Glucose 97 mg/dl 118 mg/dl Calcium Level 8.7 mg/dl 7.6 mg/dl Magnesium Level 1.9 mg/dl Total Bilirubin 0.9 mg/dl Direct Bilirubin 0.2 mg/dl Aspartate Amino Transf (AST/SGOT) 13 U/L Alanine Aminotransferase (ALT/SGPT) 21 U/L Alkaline Phosphatase 54 U/L Total Protein 7.7 gm/dl Albumin 4.3 gm/dl Lipase 98 U/L Activated Partial Thromboplast Time 24.7 SECONDS Partial Thromboplastin Ratio 1.0 D-Dimer < 190 ug/L FEU Assessment & Plan CT scan-FINDINGS: Lung bases are clear. Liver spleen and pancreas are uniform in appearance. The kidneys are negative for hydronephrosis. There are several small reactive nodes of the upper abdomen as well as retroperitoneal region. Gallbladder is negative for distention. The absence of oral contrast makes the study are extremely difficult to interpret. Possibility of a slight degree of colonic wall edema is considered. The appendix is not seen diagnostically on this exam. I cannot confirm or exclude the possibility of appendicitis based on this study. Uterus is anteflexed. There is a small amount of free fluid within the pelvic cul-de-sac. There appear to be small bilateral ovarian cysts. IMPRESSION: 1. Very limited study as the colon is not opacified with oral contrast. 2. The appendix is not identified with absolute certainty with a suggestion raised of possible mild degree of colonic wall thickening versus technical artifact raised.. 3. It Is recommended this study be repeated with oral contrast to confirm or exclude the possibility of colitis versus appendicitis . The above report was generated using voice recognition software. It may contain grammatical, syntax or spelling errors. Assessment: pt is a 37 year old female who was admitted to hospital for 3 days history abdominal pain with nausea and vomiting, IMP: colitis, appendicitis? in order to R/O acute appendicitis I recommend to do U/S study. pt agrees with the study. NPO now repeat labs in am, will F/U
--- NOTE | 2017-12-28 12:40 | Progress Note ---
Medicine Progress Note Date & Time of Visit: December 28, 2017 at 12:19. Subjective 37 yo F presented to the ER with severe diffuse abdominal pain radiating to her back along with nausea. She reports not tolerating food for the last 3 days because of severe nausea. She reports diarrhea beginning 3 days ago that she feels has subsided, however, she has not had a solid BM yet. She reports the diarrhea presenting after a meal of baked chicken, which didn't seem for be abnormally cooked. Her significant other also ate this and was not ill. However, the patient states that she is lactose-intolerant, adelita to constipation and has a h/o bacterial overgrowth in her GI tract which required multiple successive rounds of antibiotics last year, the last round in July. She has not undergone the confirmatory test for eradication with her GI team yet because she has not felt comfortable going off probiotics at this time. She reports starting to vomit last night in the ER which was a new symptom for her, and she continued to vomit until 0700 this morning, but she reports feeling better now. She still has diffuse abdominal pain. There was a question of possible appendicitis on the CT scan which was not able to be confirmed because of the lack of oral contrast. General surgery has been in to see her and will plan for an us today. Will keep her NPO at this time. All her questions were answered. Of note, she does report chills last night and denies any fevers in the last few days. Objective Last 8 Hrs Date Time Temp Pulse Resp B/P (MAP) Pulse Ox O2 Delivery O2 Flow Rate FiO2 12/28/17 06:58 37.0 77 16 102/65 (77) 98 Room Air Physical Exam: GEN: WNWD, in no acute distress, alert and appropriate HEENT: NC/AT, normal sclerae, MMM CARDIO: reg rate, S1/2 heard without m/g/r LUNGS: CTA bilaterally, no crackles, rales or wheezes, good diaphragmatic excursion ABD: soft, diffuse TTP x in LUQ, non-distended, no rebound or guarding, +BS EXTREMITY: RP and DP palpable 2+ bilat, no LE swelling or edema, extremities are warm and well-perfused NEURO: CN 2-12 grossly intact, no gross focal deficits. MUSC: 5/5 strength throughout, no gross focal deficits SKIN: warm and dry Laboratory Results: 12/28/17 01:59 Red Blood Count 4.16, Mean Corpuscular Volume 87.5, Mean Corpuscular Hemoglobin 30.0, Mean Corpuscular Hemoglobin Concent 34.3, Mean Platelet Volume 9.5, Neutrophils (%) (Auto) 95.7, Lymphocytes (%) (Auto) 3.2, Monocytes (%) (Auto) 0.9, Eosinophils (%) (Auto) 0.0, Basophils (%) (Auto) 0.0, Neutrophils # (Auto) 15.42, Lymphocytes # (Auto) 0.51, Monocytes # (Auto) 0.14, Eosinophils # (Auto) 0.00, Basophils # (Auto) 0.00 12/28/17 01:59 Test 12/27/17 19:28 12/28/17 01:59 Urine Color YELLOW Urine Appearance CLEAR (CLEAR) Urine pH 5.5 (4.5-7.5) Urine Specific [place] 1.016 (1.000-1.030) Urine Protein NEG (NEG) Urine Glucose (UA) NEG (NEG) Urine Ketones 3+ (NEG) Urine Occult Blood NEG (NEG) Urine Nitrite NEG (NEG) Urine Bilirubin NEG (NEG) Urine Urobilinogen NEG (NEG) Urine Leukocyte Esterase NEG (NEG) Urine Test NEG (NEG) Magnesium Level 1.9 mg/dl (1.8-2.4) Total Bilirubin 0.9 mg/dl (0.2-1) Direct Bilirubin 0.2 mg/dl (0-0.2) Aspartate Amino Transf (AST/SGOT) 13 U/L (15-37) Alanine Aminotransferase (ALT/SGPT) 21 U/L (12-78) Alkaline Phosphatase 54 U/L (45-117) Total Protein 7.7 gm/dl (6.4-8.2) Albumin 4.3 gm/dl (3.4-5.0) Lipase 98 U/L (73-393) White Blood Count 16.11 K/uL (4.8-10.8) Red Blood Count 4.16 M/uL (4.2-5.4) Hemoglobin 12.5 g/dL (12.0-16.0) Hematocrit 36.4 % (37-47) Mean Corpuscular Volume 87.5 fL (80-100) Mean Corpuscular Hemoglobin 30.0 pg (25-34) Mean Corpuscular Hemoglobin Concent 34.3 g/dl (32-36) Platelet Count 256 K/uL (130-400) Mean Platelet Volume 9.5 fL (7.4-10.4) Neutrophils (%) (Auto) 95.7 % Lymphocytes (%) (Auto) 3.2 % Monocytes (%) (Auto) 0.9 % Eosinophils (%) (Auto) 0.0 % Basophils (%) (Auto) 0.0 % Neutrophils # (Auto) 15.42 K/uL (1.4-6.5) Lymphocytes # (Auto) 0.51 K/uL (1.2-3.4) Monocytes # (Auto) 0.14 K/uL (0.11-0.59) Eosinophils # (Auto) 0.00 K/uL (0-0.5) Basophils # (Auto) 0.00 K/uL (0-0.2) RDW Standard Deviation 42.6 fL (36.4-46.3) RDW Coefficient of Variation 13.3 % (11.5-14.5) Immature Granulocyte % (Auto) 0.2 % Immature Granulocyte # (Auto) 0.04 K/uL (0.00-0.02) Activated Partial Thromboplast Time 24.7 SECONDS (21.0-31.0) Partial Thromboplastin Ratio 1.0 D-Dimer < 190 ug/L FEU (0-500) Anion Gap 9.0 mmol/L (3-11) Est Creatinine Clear Calc Drug Dose 105.3 ml/min Estimated GFR () 134.2 Estimated GFR (Non- 115.8 BUN/Creatinine Ratio 8.6 (10-20) Calcium Level 7.6 mg/dl (8.5-10.1) Last 24 Hours Test 12/27/17 19:28 12/28/17 01:59 White Blood Count 12.80 K/uL 16.11 K/uL Red Blood Count 4.37 M/uL 4.16 M/uL Hemoglobin 13.5 g/dL 12.5 g/dL Hematocrit 38.1 % 36.4 % Mean Corpuscular Volume 87.2 fL 87.5 fL Mean Corpuscular Hemoglobin 30.9 pg 30.0 pg Mean Corpuscular Hemoglobin Concent 35.4 g/dl 34.3 g/dl Platelet Count 284 K/uL 256 K/uL Mean Platelet Volume 9.7 fL 9.5 fL Neutrophils (%) (Auto) 77.0 % 95.7 % Lymphocytes (%) (Auto) 17.1 % 3.2 % Monocytes (%) (Auto) 5.3 % 0.9 % Eosinophils (%) (Auto) 0.2 % 0.0 % Basophils (%) (Auto) 0.2 % 0.0 % Neutrophils # (Auto) 9.87 K/uL 15.42 K/uL Lymphocytes # (Auto) 2.19 K/uL 0.51 K/uL Monocytes # (Auto) 0.68 K/uL 0.14 K/uL Eosinophils # (Auto) 0.02 K/uL 0.00 K/uL Basophils # (Auto) 0.02 K/uL 0.00 K/uL RDW Standard Deviation 42.7 fL 42.6 fL RDW Coefficient of Variation 13.3 % 13.3 % Immature Granulocyte % (Auto) 0.2 % 0.2 % Immature Granulocyte # (Auto) 0.02 K/uL 0.04 K/uL Urine Color YELLOW Urine Appearance CLEAR Urine pH 5.5 Urine Specific [place] 1.016 Urine Protein NEG Urine Glucose (UA) NEG Urine Ketones 3+ Urine Occult Blood NEG Urine Nitrite NEG Urine Bilirubin NEG Urine Urobilinogen NEG Urine Leukocyte Esterase NEG Urine Test NEG Sodium Level 138 mmol/L 136 mmol/L Potassium Level 2.9 mmol/L 3.9 mmol/L Chloride Level 104 mmol/L 106 mmol/L Carbon Dioxide Level 23 mmol/L 21 mmol/L Anion Gap 11.0 mmol/L 9.0 mmol/L Blood Urea Nitrogen 8 mg/dl 5 mg/dl Creatinine 0.77 mg/dl 0.61 mg/dl Est Creatinine Clear Calc Drug Dose 83.4 ml/min 105.3 ml/min Estimated GFR () 114.3 134.2 Estimated GFR (Non- 98.6 115.8 BUN/Creatinine Ratio 10.6 8.6 Random Glucose 97 mg/dl 118 mg/dl Calcium Level 8.7 mg/dl 7.6 mg/dl Magnesium Level 1.9 mg/dl Total Bilirubin 0.9 mg/dl Direct Bilirubin 0.2 mg/dl Aspartate Amino Transf (AST/SGOT) 13 U/L Alanine Aminotransferase (ALT/SGPT) 21 U/L Alkaline Phosphatase 54 U/L Total Protein 7.7 gm/dl Albumin 4.3 gm/dl Lipase 98 U/L Activated Partial Thromboplast Time 24.7 SECONDS Partial Thromboplastin Ratio 1.0 D-Dimer < 190 ug/L FEU Assessment & Plan 37 yo F presented to the ER with severe diffuse abdominal pain radiating to her back along with nausea. She reports not tolerating food for the last 3 days because of severe nausea. She reports diarrhea beginning 3 days ago that she feels has subsided, however, she has not had a solid BM yet. She reports the diarrhea presenting after a meal of baked chicken, which didn't seem for be abnormally cooked. Her significant other also ate this and was not ill. However, the patient states that she is lactose-intolerant, adelita to constipation and has a h/o bacterial overgrowth in her GI tract which required multiple successive rounds of antibiotics last year, the last round in July. She has not undergone the confirmatory test for eradication with her GI team yet because she has not felt comfortable going off probiotics at this time. She reports starting to vomit last night in the ER which was a new symptom for her, and she continued to vomit until 0700 this morning, but she reports feeling better now. She still has diffuse abdominal pain. There was a question of possible appendicitis on the CT scan which was not able to be confirmed because of the lack of oral contrast. General surgery has been in to see her and will plan for an us today. Will keep her NPO at this time. All her questions were answered. Of note, she does report chills last night and denies any fevers in the last few days. 1. Abdominal pain with nausea and vomiting-ddx includes but is not limited to viral vs bacterial gastroenteritis, c-diff colitis, or appendicitis. Apprec Gen Surg seeing the patient. Plan to keep her NPO for now, and obtain abdominal us to rule out appendicitis. Agree that clinical picture is more consistent with a gastroenteritis at this time, which also appears to be resolving. Added on stool studies for other infections aside from the c-diff already ordered. Based on her elevated WBC of 16K, prolonged course of diarrhea and nausea with vomiting and chills, will start her on empiric antibiotics at this time. She received one dose of Flagyl this morning. I will add Cipro and cont with the Flagyl for now. Cont supportive care efforts with pain control and anti-emetics as needed. Cont IVF for hydration. 2. h/o small bowel bacterial overgrowth-off antibiotics in Jul. Remains on probiotics which we will continue in the setting of new antibiotics. 3. Hypokalemia 2/2 diarrhea-replaced. 4. Hypocalcemia-likely 2/2 malabsorption in setting of vomiting off night vs lab error vs low mag. Will repeat labwork along with Mg check at this time. She is not vomiting anymore now and is feeling better. She has no symptoms of hypocalcemia including no confusion or tetany. 1gram was replaced overnight. DVT proph-SCDs Full Code Dispo-expect to go home in 1-2 days. Melissa Pollack DO [facility] Hospitalist Consultants: General Surgery-Dr. Aguilera Current Inpatient Medications: Current Inpatient Medications Medications (Trade) Dose Ordered Sig/Ambika Route Start Time Stop Time Status Last Admin Dose Admin Ioversol (Optiray 320) 125 ml UD PRN IV 12/27/17 20:30 12/31/17 20:29 Tramadol HCl (Ultram Tab) not relieved by tylenol @ Q6H PRN PO 12/28/17 00:00 01/27/18 00:00 Prochlorperazine Edisylate 5 mg/ Syringe 5 ml @ 5 mls/min Q6H PRN IV 12/28/17 00:00 01/27/18 00:00 12/28/17 06:23 5 MLS/MIN Ondansetron HCl (Zofran Inj) 4 mg Q6H PRN IV 12/28/17 00:00 01/27/18 00:00 Metoclopramide HCl (Reglan Inj) 10 mg Q6H PRN IV 12/28/17 00:00 01/27/18 00:00 12/28/17 01:46 10 MG Acetaminophen (Tylenol Tab) 650 mg Q4H PRN PO 12/28/17 01:00 01/27/18 00:59 Potassium Chloride/Sodium Chloride 1,000 ml @ 80 mls/hr [id number] IV 12/28/17 02:00 12/28/17 14:29 12/28/17 02:19 80 MLS/HR Multivitamins/ Minerals (Multivitamin W/ Minerals Tab) 1 tab DAILY PO 12/28/17 08:00 01/27/18 08:59 12/28/17 08:14 1 TAB Morphine Sulfate (MoRPHine SULFATE INJ) 2 mg Q3H PRN IV 12/28/17 01:00 01/11/18 00:59 12/28/17 05:35 2 MG Lorazepam (Ativan Inj) 0.5 mg Q4H PRN IV 12/28/17 01:00 01/27/18 00:59 Miscellaneous (Iv Fluids Completed) 1 ea PRN PRN N/A 12/28/17 01:30 12/28/18 01:29
[2017-12-28] MEDS ORDERED: [UNRECOGNIZED DRUG - OTHER] PO (13:08)
[2017-12-28 13:32] LABS: CALCIUM 8.2 mg/dl (8.5-10.1); CREATININE 0.57 mg/dl (0.60-1.20); POTASSIUM 3.7 mmol/L (3.5-5.1)
[2017-12-28 13:33] LABS: PHOSPHORUS 2.8 mg/dl (2.5-4.9)
[2017-12-28] MEDS: SACCHAROMYCES BOUL (FLORASTOR) 250 MG CAP PO SCH (13:52)
[2017-12-28] MEDS: METRONIDAZOLE / NSS 500 MG in PREMIXED NSS 100 ML IV SCH ×2 (13:52→22:00)
[2017-12-28] MEDS: CIPROFLOXACIN / D5W 400 MG in PREMIXED IN D5W 200 ML IV SCH ×2 (13:52→20:35)
[2017-12-28] MEDS: D5NSS + 20MEQ KCL 1,000 ML IV SCH (13:52)
--- NOTE | 2017-12-28 15:33 | DIAGNOSTIC IMAGING REPORT ---
ABDOMEN LIMITED (US) HISTORY: 37 years-old Female To R/O apeendicitis acute right lower quadrant abdominal pain COMPARISON: CT abdomen and pelvis 12/27/2017 TECHNIQUE: Multiple real-time sonographic images of the abdominal right lower quadrant were obtained assessing grayscale appearance and color flow FINDINGS: There is a fluid-filled tubular structure within the abdominal right lower quadrant measuring up to 1.2 cm with mild wall thickening measuring 3 mm. Increased echogenicity of the surrounding fat with mild hyperemia. This structure is not visualized in its entirety. No drainable fluid collections. IMPRESSION: Partially imaged fluid-filled tubular structure of the right lower quadrant measuring 1.2 cm with thickened wall suggests dilated inflamed appendix. The above report was generated using voice recognition software. It may contain grammatical, syntax or spelling errors. Electronically signed by: Man Lenug M.D. 12/28/2017 3:32 PM Dictated Date/Time: 12/28/2017 3:27 PM
[2017-12-28 15:55] VITALS: BP 94/61; PULSE 71; TEMP 36.9; O2SAT 100
--- NOTE | 2017-12-28 16:44 | Surgery Progress Note ---
Surgery Progress Note Date of Service December 28, 2017. Subjective F/U U/S study- report acute appendicitis, pt is still have some lower abdominal pain, no nausea, no vomiting, Objective Vital Signs: Date Time Temp Pulse Resp B/P (MAP) Pulse Ox O2 Delivery O2 Flow Rate FiO2 12/28/17 15:55 36.9 71 18 94/61 (72) 100 Room Air 12/28/17 08:00 Room Air 12/28/17 06:58 37.0 77 16 102/65 (77) 98 Room Air 12/28/17 01:25 36.9 79 16 122/76 100 Room Air 12/28/17 01:09 36.8 70 16 119/62 100 Room Air 12/28/17 00:05 72 16 120/70 100 Room Air 12/27/17 23:18 72 12/27/17 22:24 83 16 114/78 100 Room Air 12/27/17 21:06 70 16 138/82 100 Room Air 12/27/17 19:53 64 12/27/17 19:15 36.5 70 16 136/79 100 Room Air General Appearance: WD/WN, no apparent distress Head: normocephalic Neck: supple, no JVD Respiratory/Chest: chest non-tender, lungs clear, normal breath sounds, no respiratory distress Cardiovascular: regular rate, rhythm, no edema, no gallop, no JVD, no murmur Abdomen: soft, + tenderness (at lwoer abdomen, most pain at RLQ, no rebound pain, ) Extremities: normal range of motion, non-tender, normal inspection Laboratory Results: Results Past 24 Hours Test 12/27/17 19:28 12/28/17 01:59 12/28/17 12:57 Range/Units White Blood Count 12.80 16.11 4.8-10.8 K/uL Red Blood Count 4.37 4.16 4.2-5.4 M/uL Hemoglobin 13.5 12.5 12.0-16.0 g/dL Hematocrit 38.1 36.4 37-47 % Mean Corpuscular Volume 87.2 87.5 80-100 fL Mean Corpuscular Hemoglobin 30.9 30.0 25-34 pg Mean Corpuscular Hemoglobin Concent 35.4 34.3 32-36 g/dl Platelet Count 284 256 130-400 K/uL Mean Platelet Volume 9.7 9.5 7.4-10.4 fL Neutrophils (%) (Auto) 77.0 95.7 % Lymphocytes (%) (Auto) 17.1 3.2 % Monocytes (%) (Auto) 5.3 0.9 % Eosinophils (%) (Auto) 0.2 0.0 % Basophils (%) (Auto) 0.2 0.0 % Neutrophils # (Auto) 9.87 15.42 1.4-6.5 K/uL Lymphocytes # (Auto) 2.19 0.51 1.2-3.4 K/uL Monocytes # (Auto) 0.68 0.14 0.11-0.59 K/uL Eosinophils # (Auto) 0.02 0.00 0-0.5 K/uL Basophils # (Auto) 0.02 0.00 0-0.2 K/uL RDW Standard Deviation 42.7 42.6 36.4-46.3 fL RDW Coefficient of Variation 13.3 13.3 11.5-14.5 % Immature Granulocyte % (Auto) 0.2 0.2 % Immature Granulocyte # (Auto) 0.02 0.04 0.00-0.02 K/uL Urine Color YELLOW Urine Appearance CLEAR CLEAR Urine pH 5.5 4.5-7.5 Urine Specific [place] 1.016 1.000-1.030 Urine Protein NEG NEG Urine Glucose (UA) NEG NEG Urine Ketones 3+ NEG Urine Occult Blood NEG NEG Urine Nitrite NEG NEG Urine Bilirubin NEG NEG Urine Urobilinogen NEG NEG Urine Leukocyte Esterase NEG NEG Urine Test NEG NEG Sodium Level 138 136 140 136-145 mmol/L Potassium Level 2.9 3.9 3.7 3.5-5.1 mmol/L Chloride Level 104 106 109 98-107 mmol/L Carbon Dioxide Level 23 21 23 21-32 mmol/L Anion Gap 11.0 9.0 8.0 3-11 mmol/L Blood Urea Nitrogen 8 5 5 7-18 mg/dl Creatinine 0.77 0.61 0.57 0.60-1.20 mg/dl Est Creatinine Clear Calc Drug Dose 83.4 105.3 112.6 ml/min Estimated GFR () 114.3 134.2 137.3 Estimated GFR (Non- 98.6 115.8 118.4 BUN/Creatinine Ratio 10.6 8.6 7.9 10-20 Random Glucose 97 118 87 70-99 mg/dl Calcium Level 8.7 7.6 8.2 8.5-10.1 mg/dl Magnesium Level 1.9 2.0 1.8-2.4 mg/dl Total Bilirubin 0.9 0.2-1 mg/dl Direct Bilirubin 0.2 0-0.2 mg/dl Aspartate Amino Transf (AST/SGOT) 13 15-37 U/L Alanine Aminotransferase (ALT/SGPT) 21 12-78 U/L Alkaline Phosphatase 54 45-117 U/L Total Protein 7.7 6.4-8.2 gm/dl Albumin 4.3 3.4-5.0 gm/dl Lipase 98 73-393 U/L Activated Partial Thromboplast Time 24.7 21.0-31.0 SECONDS Partial Thromboplastin Ratio 1.0 D-Dimer < 190 0-500 ug/L FEU Ionized Calcium 1.08 1.12-1.32 mmol/l Phosphorus Level 2.8 2.5-4.9 mg/dl Assessment & Plan U/S study- FINDINGS: There is a fluid-filled tubular structure within the abdominal right lower quadrant measuring up to 1.2 cm with mild wall thickening measuring 3 mm. Increased echogenicity of the surrounding fat with mild hyperemia. This structure is not visualized in its entirety. No drainable fluid collections. IMPRESSION: Partially imaged fluid-filled tubular structure of the right lower quadrant measuring 1.2 cm with thickened wall suggests dilated inflamed appendix. IMP: acute appendicitis, Plan, I recommend to do laparoscopic appendectomy, possible open, D/W benefits, risks and alternatives of [facility] surgery, the risks - infection, bleeding, abscess , injury bowel, DVT, , pt dose not agree with diagnosis acute appendicitis , I recommend to do CT scan with po contrast, D/W benefits, risks and alternatives of the CT scan, risks - radiation, pt wants to thinking about, pt will ask nurse to call me once she decide to do Ct scan, I also indicated pt may develop perforation of appendix, sepsis, , pt understood, I answered all questions,
[2017-12-28] MEDS ORDERED: ATROPINE SULFATE 0.1 MG/ML 5ML SYR IV PRN (16:45)
[2017-12-28] MEDS ORDERED: ONDANSETRON INJ 2 MG/ML 2 ML VIAL IV PRN ×2 (16:45)
[2017-12-28] MEDS ORDERED: FLUMAZENIL 0.1 MG/1 ML 10 ML VIAL IV PRN (16:45)
[2017-12-28] MEDS ORDERED: NALOXONE HCL 0.4 MG/1 ML VIAL/CARP IV PRN (16:45)
[2017-12-28] MEDS ORDERED: LABETALOL HCL IV 5 MG/ML 20ML IV PRN (16:45)
[2017-12-28] MEDS ORDERED: HYDROmorphone INJ 0.5 MG/0.5 ML SYR IV PRN (16:45)
[2017-12-28] MEDS ORDERED: PHENYLEPHRINE 100MCG/ML 5ML SYR IV PRN (16:45)
[2017-12-28] MEDS ORDERED: EpHEDrine SULFATE INJ 50 MG/ML AMP IV PRN (16:45)
[2017-12-28] MEDS ORDERED: MEPERIDINE HCL 25 MG/ML CARP IV PRN (16:45)
[2017-12-28] MEDS ORDERED: FENTANYL CITRATE INJ 50 MCG/1 ML 2 ML VIAL IV PRN (16:45)
--- NOTE | 2017-12-28 20:17 | DIAGNOSTIC IMAGING REPORT ---
CT SCAN OF THE ABDOMEN AND PELVIS WITHOUT CONTRAST CLINICAL HISTORY: Abdominal pain COMPARISON STUDY: 12/27/2017 , ultrasound study dated 12/28/2017 TECHNIQUE: CT scan of the abdomen and pelvis was performed from the lung bases to the proximal femurs. Images are reviewed in the axial, sagittal, and coronal planes. IV contrast was not administered for this examination. A dose lowering technique was utilized adhering to the principles of ALARA. CT DOSE: 240.94 mGy.cm FINDINGS: Lower chest: The heart is normal in size and configuration, without pericardial effusion. The lung bases and pleural spaces are clear. Liver: The unenhanced liver is normal in size, contour, and attenuation. There is no intrahepatic biliary ductal dilatation. Gallbladder: There is contrast within the gallbladder, likely secondary to vicarious excretion Spleen: Normal in size and attenuation. Pancreas: Unremarkable. Adrenal glands: Unremarkable. Kidneys: The unenhanced kidneys are normal in size without hydronephrosis. There is no contour deforming renal mass lesion. No renal calculi are identified. Bowel: There are no transition zones indicate bowel obstruction. The appendix is not visualized with certainty. There is mild infiltration of the pericecal fat. Given the recent ultrasound findings, this could be secondary to appendicitis. There is no evidence of acute diverticulitis. Peritoneum: There is no free air. There is a smaller free pelvic fluid. Vasculature: The abdominal aorta is normal in course and caliber. Adenopathy: None. Pelvic viscera: The bladder, and pelvic viscera are unremarkable. Skeletal structures: No destructive osseous lesions are seen. IMPRESSION: 1. Evaluation for acute inflammatory changes is limited as no intravenous contrast was administered 2. No evidence of bowel obstruction. No evidence of free air 3. The appendix was not visualized with certainty. There are however subtle pericecal inflammatory changes. Given the ultrasound findings of earlier in the day, acute appendicitis must be considered and surgical consultation is recommended Electronically signed by: Kuldeep Sims M.D. 12/28/2017 8:15 PM Dictated Date/Time: 12/28/2017 8:06 PM
[2017-12-28 21:00] VITALS: O2SAT 100
--- NOTE | 2017-12-28 21:31 | Surgery Progress Note ---
Surgery Progress Note Date of Service December 28, 2017. Subjective F/U CT scan-IMPRESSION: 1. Evaluation for acute inflammatory changes is limited as no intravenous contrast was administered 2. No evidence of bowel obstruction. No evidence of free air 3. The appendix was not visualized with certainty. There are however subtle pericecal inflammatory changes. Given the ultrasound findings of earlier in the day, acute appendicitis must be considered and surgical consultation is recommended pt said she feels better compare this morning, pt denies nausea, no vomiting, Objective Vital Signs: Date Time Temp Pulse Resp B/P (MAP) Pulse Ox O2 Delivery O2 Flow Rate FiO2 12/28/17 16:00 Room Air 12/28/17 15:55 36.9 71 18 94/61 (72) 100 Room Air 12/28/17 08:00 Room Air 12/28/17 06:58 37.0 77 16 102/65 (77) 98 Room Air 12/28/17 01:25 36.9 79 16 122/76 100 Room Air 12/28/17 01:09 36.8 70 16 119/62 100 Room Air 12/28/17 00:05 72 16 120/70 100 Room Air 12/27/17 23:18 72 12/27/17 22:24 83 16 114/78 100 Room Air General Appearance: WD/WN, no apparent distress Head: normocephalic Neck: supple, no JVD Respiratory/Chest: chest non-tender, lungs clear Cardiovascular: regular rate, rhythm, no edema Abdomen: normal bowel sounds, non distended, soft, + tenderness (slightly tenderness at lower abdomen, no rebound pain, ) Extremities: normal range of motion, non-tender, normal inspection Laboratory Results: Results Past 24 Hours Test 12/28/17 01:59 12/28/17 12:57 Range/Units White Blood Count 16.11 4.8-10.8 K/uL Red Blood Count 4.16 4.2-5.4 M/uL Hemoglobin 12.5 12.0-16.0 g/dL Hematocrit 36.4 37-47 % Mean Corpuscular Volume 87.5 80-100 fL Mean Corpuscular Hemoglobin 30.0 25-34 pg Mean Corpuscular Hemoglobin Concent 34.3 32-36 g/dl Platelet Count 256 130-400 K/uL Mean Platelet Volume 9.5 7.4-10.4 fL Neutrophils (%) (Auto) 95.7 % Lymphocytes (%) (Auto) 3.2 % Monocytes (%) (Auto) 0.9 % Eosinophils (%) (Auto) 0.0 % Basophils (%) (Auto) 0.0 % Neutrophils # (Auto) 15.42 1.4-6.5 K/uL Lymphocytes # (Auto) 0.51 1.2-3.4 K/uL Monocytes # (Auto) 0.14 0.11-0.59 K/uL Eosinophils # (Auto) 0.00 0-0.5 K/uL Basophils # (Auto) 0.00 0-0.2 K/uL RDW Standard Deviation 42.6 36.4-46.3 fL RDW Coefficient of Variation 13.3 11.5-14.5 % Immature Granulocyte % (Auto) 0.2 % Immature Granulocyte # (Auto) 0.04 0.00-0.02 K/uL Activated Partial Thromboplast Time 24.7 21.0-31.0 SECONDS Partial Thromboplastin Ratio 1.0 D-Dimer < 190 0-500 ug/L FEU Sodium Level 136 140 136-145 mmol/L Potassium Level 3.9 3.7 3.5-5.1 mmol/L Chloride Level 106 109 98-107 mmol/L Carbon Dioxide Level 21 23 21-32 mmol/L Anion Gap 9.0 8.0 3-11 mmol/L Blood Urea Nitrogen 5 5 7-18 mg/dl Creatinine 0.61 0.57 0.60-1.20 mg/dl Est Creatinine Clear Calc Drug Dose 105.3 112.6 ml/min Estimated GFR () 134.2 137.3 Estimated GFR (Non- 115.8 118.4 BUN/Creatinine Ratio 8.6 7.9 10-20 Random Glucose 118 87 70-99 mg/dl Calcium Level 7.6 8.2 8.5-10.1 mg/dl Ionized Calcium 1.08 1.12-1.32 mmol/l Phosphorus Level 2.8 2.5-4.9 mg/dl Magnesium Level 2.0 1.8-2.4 mg/dl Microbiology Results 12/28/17 WBC Smear, Received Pending 12/28/17 Shiga Toxin Test, Received Pending 12/28/17 Stool Culture, Received Pending 12/28/17 C.difficile Toxin B Gene (PCR) - Final, Complete No C. difficile toxin B gene detected Assessment & Plan U/S study- FINDINGS: There is a fluid-filled tubular structure within the abdominal right lower quadrant measuring up to 1.2 cm with mild wall thickening measuring 3 mm. Increased echogenicity of the surrounding fat with mild hyperemia. This structure is not visualized in its entirety. No drainable fluid collections. IMPRESSION: Partially imaged fluid-filled tubular structure of the right lower quadrant measuring 1.2 cm with thickened wall suggests dilated inflamed appendix. IMP: acute appendicitis, Plan, I recommend to do laparoscopic appendectomy, possible open, D/W benefits, risks and alternatives of [place] surgery, the risks - infection, bleeding, abscess , injury bowel, DVT, , pt dose not agree with diagnosis acute appendicitis , I recommend to do CT scan with po contrast, D/W benefits, risks and alternatives of the CT scan, risks - radiation, pt wants to thinking about, pt will ask nurse to call me once she decide to do Ct scan, I also indicated pt may develop perforation of appendix, sepsis, , pt understood, I answered all questions, CT scan-(12/28/17)-FINDINGS: Lower chest: The heart is normal in size and configuration, without pericardial effusion. The lung bases and pleural spaces are clear. Liver: The unenhanced liver is normal in size, contour, and attenuation. There is no intrahepatic biliary ductal dilatation. Gallbladder: There is contrast within the gallbladder, likely secondary to vicarious excretion Spleen: Normal in size and attenuation. Pancreas: Unremarkable. Adrenal glands: Unremarkable. Kidneys: The unenhanced kidneys are normal in size without hydronephrosis. There is no contour deforming renal mass lesion. No renal calculi are identified. Bowel: There are no transition zones indicate bowel obstruction. The appendix is not visualized with certainty. There is mild infiltration of the pericecal fat. Given the recent ultrasound findings, this could be secondary to appendicitis. There is no evidence of acute diverticulitis. Peritoneum: There is no free air. There is a smaller free pelvic fluid. Vasculature: The abdominal aorta is normal in course and caliber. Adenopathy: None. Pelvic viscera: The bladder, and pelvic viscera are unremarkable. Skeletal structures: No destructive osseous lesions are seen. IMPRESSION: 1. Evaluation for acute inflammatory changes is limited as no intravenous contrast was administered 2. No evidence of bowel obstruction. No evidence of free air 3. The appendix was not visualized with certainty. There are however subtle pericecal inflammatory changes. Given the ultrasound findings of earlier in the day, acute appendicitis must be considered and surgical consultation is recommended IMP: acute appendicitis, Plan, I recommend to do laparoscopic appendectomy, possible open, D/W benefits, risks and alternatives of the surgery, the risks - infection, bleeding, abscess , injury bowel, DVT, , pt dose not agree with diagnosis acute appendicitis base on pt feels better, I also indicated pt may develop perforation of appendix , sepsis, , pt understood, I answered all questions, repeat labs and re- exam pt in morning, U/S study- FINDINGS: There is a fluid-filled tubular structure within the abdominal right lower quadrant measuring up to 1.2 cm with mild wall thickening measuring 3 mm. Increased echogenicity of the surrounding fat with mild hyperemia. This structure is not visualized in its entirety. No drainable fluid collections.
[2017-12-29] VITALS (8 sets, daily range): BP systolic 93–137; BP diastolic 58–86; PULSE 60–80; TEMP 36.5–37; O2SAT 96–100
[2017-12-29] MEDS: D5NSS + 20MEQ KCL 1,000 ML IV SCH ×2 (02:20→13:57)
[2017-12-29] MEDS: METRONIDAZOLE / NSS 500 MG in PREMIXED NSS 100 ML IV SCH ×2 (05:45→13:57)
[2017-12-29] MEDS: SACCHAROMYCES BOUL (FLORASTOR) 250 MG CAP PO SCH (07:39)
[2017-12-29] MEDS: CEROVITE ADV FORMULA TAB PO SCH (07:39)
[2017-12-29] MEDS: CIPROFLOXACIN / D5W 400 MG in PREMIXED IN D5W 200 ML IV SCH ×2 (08:18→21:44)
[2017-12-29 08:58] LABS: BASO % 0.2 %; BASO ABS # 0.01 K/uL (0-0.2); EOS % 0.5 %; EOS ABS # 0.03 K/uL (0-0.5); HEMATOCRIT 32.3 % (37-47); IG# 0.01 K/uL (0.00-0.02); LYMPH ABS # 1.64 K/uL (1.2-3.4); MEAN CELL VOLUME 88.7 fL (80-100); MEAN CORPUSCULAR HEMOGLOBIN 30.2 pg (25-34); MEAN CORPUSCULAR HGB CONC 34.1 g/dl (32-36); MEAN PLATELET VOLUME 9.7 fL (7.4-10.4); MONO % 9.7 %; MONO ABS # 0.55 K/uL (0.11-0.59); NEUT % 60.4 %; NEUT ABS # 3.42 K/uL (1.4-6.5); PLATELET COUNT 220 K/uL (130-400); RED CELL DISTRIBUTION WIDTH CV 13.8 % (11.5-14.5); RED CELL DISTRIBUTION WIDTH SD 45.5 fL (36.4-46.3); WHITE BLOOD COUNT 5.66 K/uL (4.8-10.8)
[2017-12-29 09:10] LABS: ALBUMIN 3.1 gm/dl (3.4-5.0); CALCIUM 7.7 mg/dl (8.5-10.1); CREATININE 0.55 mg/dl (0.60-1.20); POTASSIUM 3.6 mmol/L (3.5-5.1)
[2017-12-29 09:17] LABS: TOTAL PROTEIN 5.6 gm/dl (6.4-8.2)
--- NOTE | 2017-12-29 12:45 | Gastrointestinal Consultation ---
Gastrointestinal Consultation Date of Consultation: December 29, 2017 Attending Physician: Ranjeet Consulting Physician: Nick Reason for Consultation: microscopic colitis, abd pain History of Present Illness Patient is a 37 year old female w/ history of SIBO and chronic abd pain admitted through the ED for abdominal pain, noncontrast CT suggestive of acute appendicitis. She was started on cipro/flagyl w/ improvement of her symptoms. She was evaluated by general surgery x 2 who suggested she undergo appendectomy. She had deferred this. Now has mild RLQ pain. No longer with nausea, vomiting CT 12/28/17:: Evaluation for acute inflammatory changes is limited as no intravenouscontrast was administeredNo evidence of bowel obstruction. No evidence of free air The appendix was not visualized with certainty. There are however subtlepericecal inflammatory changes. Given the ultrasound findings of earlier in theday, acute appendicitis must be considered and surgical consultation is recommended CT 12/27/17: Very limited study as the colon is not opacified with oral contrast.The appendix is not identified with absolute certainty with a suggestion raised of possible mild degree of colonic wall thickening versus technical artifact raised. It Is recommended this study be repeated with oral contrast to confirm or exclude the possibility of colitis versus appendicitis . ABD 12/27/17: Partially imaged fluid-filled tubular structure of the right lower quadrant measuring 1.2 cm with thickened wall suggests dilated inflamed appendix. 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 Family History FH: cancer FH: hypertension Hypertension Social History Smoking Status: Current Some Day Smoker Alcohol Use: occasionally Drug Use: none Marital Status: single Housing Status: unknown Occupation Status: employed Allergies Coded Allergies: No Known Allergies (Unverified , 10/02/15) Current Medications Home Meds and Scripts Medications Dose Route/Sig Max Daily Dose Days Date Category [Orthobiotic] 1 Cap PO DAILY 12/28/17 Reported Milk Thistle (Milk Thistle (Silybum [place]um) Unknown Strength Cap 1 Cap PO DAILY 12/27/17 Reported [Gold Seal] 1 Tab PO DAILY 12/27/17 Reported Turmeric (Turmeric (Curcuma Longa)) Unknown Strength Cap 1 Tab PO DAILY 12/27/17 Reported Mvi With Minerals (Multivitamins/Minerals) Tab 1 Tab PO DAILY 12/27/17 Reported Vitamin D (Cholecalciferol) 5,000 Unit Tab 5,000 Units PO DAILY 12/27/17 Reported Proair Respiclick (Albuterol Sulfate) 108 Mcg/Act Aer Puff INH PRN UD 12/27/17 Reported Review of Systems Constitutional: No fever, No chills, No weakness Respiratory: No cough, No sputum, No shortness of breath Cardiac: No chest pain Abdomen: + pain, No nausea, No vomiting, No diarrhea, No GI bleeding Skin: No rash Physical Exam Date Time Temp Pulse Resp B/P (MAP) Pulse Ox O2 Delivery O2 Flow Rate FiO2 12/29/17 08:00 Room Air 12/29/17 07:35 36.8 64 16 93/58 (70) 96 Room Air 12/29/17 01:48 100 Room Air 12/29/17 00:46 36.8 80 20 96/61 (73) 98 Room Air 12/28/17 21:00 100 Room Air 12/28/17 16:00 Room Air 12/28/17 15:55 36.9 71 18 94/61 (72) 100 Room Air General Appearance: no apparent distress Eyes: PERRL ENT: hearing grossly normal Neck: supple, trachea midline Respiratory/Chest: lungs clear, normal breath sounds, no respiratory distress, no accessory muscle use Cardiovascular: regular rate, rhythm Abdomen: normal bowel sounds, soft, no organomegaly, + tenderness (lower abd pain, worse in RLQ) Neurologic/Psych: alert, normal mood/affect, oriented x 3 Skin: normal color, no jaundice, warm/dry, no rash Laboratory Results Last 24 Hours Test 12/28/17 12:57 12/29/17 08:08 Sodium Level 140 mmol/L 142 mmol/L Potassium Level 3.7 mmol/L 3.6 mmol/L Chloride Level 109 mmol/L 112 mmol/L Carbon Dioxide Level 23 mmol/L 25 mmol/L Anion Gap 8.0 mmol/L 5.0 mmol/L Blood Urea Nitrogen 5 mg/dl 5 mg/dl Creatinine 0.57 mg/dl 0.55 mg/dl Est Creatinine Clear Calc Drug Dose 112.6 ml/min 116.7 ml/min Estimated GFR () 137.3 138.9 Estimated GFR (Non- 118.4 119.8 BUN/Creatinine Ratio 7.9 8.6 Random Glucose 87 mg/dl 97 mg/dl Calcium Level 8.2 mg/dl 7.7 mg/dl Ionized Calcium 1.08 mmol/l Phosphorus Level 2.8 mg/dl Magnesium Level 2.0 mg/dl White Blood Count 5.66 K/uL Red Blood Count 3.64 M/uL Hemoglobin 11.0 g/dL Hematocrit 32.3 % Mean Corpuscular Volume 88.7 fL Mean Corpuscular Hemoglobin 30.2 pg Mean Corpuscular Hemoglobin Concent 34.1 g/dl Platelet Count 220 K/uL Mean Platelet Volume 9.7 fL Neutrophils (%) (Auto) 60.4 % Lymphocytes (%) (Auto) 29.0 % Monocytes (%) (Auto) 9.7 % Eosinophils (%) (Auto) 0.5 % Basophils (%) (Auto) 0.2 % Neutrophils # (Auto) 3.42 K/uL Lymphocytes # (Auto) 1.64 K/uL Monocytes # (Auto) 0.55 K/uL Eosinophils # (Auto) 0.03 K/uL Basophils # (Auto) 0.01 K/uL RDW Standard Deviation 45.5 fL RDW Coefficient of Variation 13.8 % Immature Granulocyte % (Auto) 0.2 % Immature Granulocyte # (Auto) 0.01 K/uL Total Bilirubin 0.5 mg/dl Aspartate Amino Transf (AST/SGOT) 8 U/L Alanine Aminotransferase (ALT/SGPT) 15 U/L Alkaline Phosphatase 38 U/L Total Protein 5.6 gm/dl Albumin 3.1 gm/dl Globulin 2.5 gm/dl Albumin/Globulin Ratio 1.2 Impression Patient is a 37 year old female w/ history SIBO, chronic upper abdominal pain admitted for acute lower abdominal pain, nausea, vomiting. Noncontrast CT, contrast CT, and US consistent with acute appendicitis. She has been hesitant to appendectomy and wanted to discuss with gastroenterology prior to arranging appendectomy. Plan - Appendectomy per general surgery - Can follow up as OP if chronic abdominal pain and symptoms persist. - GI to sign off. Please call with any questions or concerns. I have seen and examined the patient with ARELI Chopra whose note reflects our findings and plan. RLQ pain. Imaging pretty convincing for acute appendicitis. Patient now agreeable to appy. Has h/o SiBO. Can be seen as an outpatient if needed.
--- NOTE | 2017-12-29 14:07 | Surgery Progress Note ---
Surgery Progress Note Date of Service December 29, 2017. Subjective pt is still have some RLQ pain, GI consult done , GI doctor recommend to do appendectomy, pt agrees with the surgery. Objective Vital Signs: Date Time Temp Pulse Resp B/P (MAP) Pulse Ox O2 Delivery O2 Flow Rate FiO2 12/29/17 08:00 Room Air 12/29/17 07:35 36.8 64 16 93/58 (70) 96 Room Air 12/29/17 01:48 100 Room Air 12/29/17 00:46 36.8 80 20 96/61 (73) 98 Room Air 12/28/17 21:00 100 Room Air 12/28/17 16:00 Room Air 12/28/17 15:55 36.9 71 18 94/61 (72) 100 Room Air General Appearance: WD/WN, no apparent distress Head: normocephalic Neck: supple, no JVD Respiratory/Chest: chest non-tender, lungs clear Cardiovascular: regular rate, rhythm, no edema, no gallop Abdomen: normal bowel sounds, + tenderness (at RLQ, no rebound pain) Extremities: normal range of motion, non-tender, normal inspection Laboratory Results: Results Past 24 Hours Test 12/29/17 08:08 Range/Units White Blood Count 5.66 4.8-10.8 K/uL Red Blood Count 3.64 4.2-5.4 M/uL Hemoglobin 11.0 12.0-16.0 g/dL Hematocrit 32.3 37-47 % Mean Corpuscular Volume 88.7 80-100 fL Mean Corpuscular Hemoglobin 30.2 25-34 pg Mean Corpuscular Hemoglobin Concent 34.1 32-36 g/dl Platelet Count 220 130-400 K/uL Mean Platelet Volume 9.7 7.4-10.4 fL Neutrophils (%) (Auto) 60.4 % Lymphocytes (%) (Auto) 29.0 % Monocytes (%) (Auto) 9.7 % Eosinophils (%) (Auto) 0.5 % Basophils (%) (Auto) 0.2 % Neutrophils # (Auto) 3.42 1.4-6.5 K/uL Lymphocytes # (Auto) 1.64 1.2-3.4 K/uL Monocytes # (Auto) 0.55 0.11-0.59 K/uL Eosinophils # (Auto) 0.03 0-0.5 K/uL Basophils # (Auto) 0.01 0-0.2 K/uL RDW Standard Deviation 45.5 36.4-46.3 fL RDW Coefficient of Variation 13.8 11.5-14.5 % Immature Granulocyte % (Auto) 0.2 % Immature Granulocyte # (Auto) 0.01 0.00-0.02 K/uL Sodium Level 142 136-145 mmol/L Potassium Level 3.6 3.5-5.1 mmol/L Chloride Level 112 98-107 mmol/L Carbon Dioxide Level 25 21-32 mmol/L Anion Gap 5.0 3-11 mmol/L Blood Urea Nitrogen 5 7-18 mg/dl Creatinine 0.55 0.60-1.20 mg/dl Est Creatinine Clear Calc Drug Dose 116.7 ml/min Estimated GFR () 138.9 Estimated GFR (Non- 119.8 BUN/Creatinine Ratio 8.6 10-20 Random Glucose 97 70-99 mg/dl Calcium Level 7.7 8.5-10.1 mg/dl Total Bilirubin 0.5 0.2-1 mg/dl Aspartate Amino Transf (AST/SGOT) 8 15-37 U/L Alanine Aminotransferase (ALT/SGPT) 15 12-78 U/L Alkaline Phosphatase 38 45-117 U/L Total Protein 5.6 6.4-8.2 gm/dl Albumin 3.1 3.4-5.0 gm/dl Globulin 2.5 2.5-4.0 gm/dl Albumin/Globulin Ratio 1.2 0.9-2 Microbiology Results 12/28/17 WBC Smear - Final, Complete 12/28/17 Shiga Toxin Test, Received Pending 12/28/17 Stool Culture, Received Pending 12/28/17 C.difficile Toxin B Gene (PCR) - Final, Complete No C. difficile toxin B gene detected Assessment & Plan U/S study- FINDINGS: There is a fluid-filled tubular structure within the abdominal right lower quadrant measuring up to 1.2 cm with mild wall thickening measuring 3 mm. Increased echogenicity of the surrounding fat with mild hyperemia. This structure is not visualized in its entirety. No drainable fluid collections. IMPRESSION: Partially imaged fluid-filled tubular structure of the right lower quadrant measuring 1.2 cm with thickened wall suggests dilated inflamed appendix. IMP: acute appendicitis, Plan, I recommend to do laparoscopic appendectomy, possible open, D/W benefits, risks and alternatives of layo surgery, the risks - infection, bleeding, abscess , injury bowel, DVT, , pt dose not agree with diagnosis acute appendicitis , I recommend to do CT scan with po contrast, D/W benefits, risks and alternatives of the CT scan, risks - radiation, pt wants to thinking about, pt will ask nurse to call me once she decide to do Ct scan, I also indicated pt may develop perforation of appendix, sepsis, , pt understood, I answered all questions, CT scan-(12/28/17)-FINDINGS: Lower chest: The heart is normal in size and configuration, without pericardial effusion. The lung bases and pleural spaces are clear. Liver: The unenhanced liver is normal in size, contour, and attenuation. There is no intrahepatic biliary ductal dilatation. Gallbladder: There is contrast within the gallbladder, likely secondary to vicarious excretion Spleen: Normal in size and attenuation. Pancreas: Unremarkable. Adrenal glands: Unremarkable. Kidneys: The unenhanced kidneys are normal in size without hydronephrosis. There is no contour deforming renal mass lesion. No renal calculi are identified. Bowel: There are no transition zones indicate bowel obstruction. The appendix is not visualized with certainty. There is mild infiltration of the pericecal fat. Given the recent ultrasound findings, this could be secondary to appendicitis. There is no evidence of acute diverticulitis. Peritoneum: There is no free air. There is a smaller free pelvic fluid. Vasculature: The abdominal aorta is normal in course and caliber. Adenopathy: None. Pelvic viscera: The bladder, and pelvic viscera are unremarkable. Skeletal structures: No destructive osseous lesions are seen. IMPRESSION: 1. Evaluation for acute inflammatory changes is limited as no intravenous contrast was administered 2. No evidence of bowel obstruction. No evidence of free air 3. The appendix was not visualized with certainty. There are however subtle pericecal inflammatory changes. Given the ultrasound findings of earlier in the day, acute appendicitis must be considered and surgical consultation is recommended IMP: acute appendicitis, Plan, I recommend to do laparoscopic appendectomy, possible open, D/W benefits, risks and alternatives of the surgery, the risks - infection, bleeding, abscess , injury bowel, DVT, , pt dose not agree with diagnosis acute appendicitis base on pt feels better, I also indicated pt may develop perforation of appendix , sepsis, , pt understood, I answered all questions, repeat labs and re- exam pt in morning, 12/29/2017 Plan, I recommend to do laparoscopic appendectomy, possible open, D/W benefits, risks and alternatives of the surgery, the risks - infection, bleeding, abscess , injury bowel, DVT, , pt agree with surgery, I answered all questions, U/S study- FINDINGS: There is a fluid-filled tubular structure within the abdominal right lower quadrant measuring up to 1.2 cm with mild wall thickening measuring 3 mm. Increased echogenicity of the surrounding fat with mild hyperemia. This structure is not visualized in its entirety. No drainable fluid collections. IMPRESSION: Partially imaged fluid-filled tubular structure of the right lower quadrant measuring 1.2 cm with thickened wall suggests dilated inflamed appendix. IMP: acute appendicitis, Plan, I recommend to do laparoscopic appendectomy, possible open, D/W benefits, risks and alternatives of layo surgery, the risks - infection, bleeding, abscess , injury bowel, DVT, , pt dose not agree with diagnosis acute appendicitis , I recommend to do CT scan with po contrast, D/W benefits, risks and alternatives of the CT scan, risks - radiation, pt wants to thinking about, pt will ask nurse to call me once she decide to do Ct scan, I also indicated pt may develop perforation of appendix, sepsis, , pt understood, I answered all questions, CT scan-(12/28/17)-FINDINGS: Lower chest: The heart is normal in size and configuration, without pericardial effusion. The lung bases and pleural spaces are clear. Liver: The unenhanced liver is normal in size, contour, and attenuation. There is no intrahepatic biliary ductal dilatation. Gallbladder: There is contrast within the gallbladder, likely secondary to vicarious excretion Spleen: Normal in size and attenuation. Pancreas: Unremarkable. Adrenal glands: Unremarkable. Kidneys: The unenhanced kidneys are normal in size without hydronephrosis. There is no contour deforming renal mass lesion. No renal calculi are identified. Bowel: There are no transition zones indicate bowel obstruction. The appendix is not visualized with certainty. There is mild infiltration of the pericecal fat. Given the recent ultrasound findings, this could be secondary to appendicitis. There is no evidence of acute diverticulitis. Peritoneum: There is no free air. There is a smaller free pelvic fluid. Vasculature: The abdominal aorta is normal in course and caliber. Adenopathy: None. Pelvic viscera: The bladder, and pelvic viscera are unremarkable. Skeletal structures: No destructive osseous lesions are seen.
[2017-12-29] MEDS ORDERED: FENTANYL CITRATE INJ 50 MCG/1 ML 2 ML VIAL ONE (16:45)
[2017-12-29] MEDS ORDERED: MIDAZOLAM HCL 1 MG/ML 2ML VIAL ONE (16:45)
[2017-12-29] MEDS ORDERED: CEFOXITIN SOD 2 GM VIAL IV STA (18:28)
--- NOTE | 2017-12-29 18:29 | History & Physical Bridge Note ---
H&P Re-Evaluation Bridge Note: I have examined the patient, reviewed the History & Physical and in the interval since the performance of the History & Physical I have noted the following changes of clinical significance: No changes noted
[2017-12-29] MEDS ORDERED: BACITRACIN OINT 15 GM TUBE ONE (18:31)
[2017-12-29] MEDS ORDERED: BUPIVACAINE 0.5 % 5 MG/1 ML MPF 30ML VIAL ONE (18:31)
[2017-12-29] MEDS ORDERED: LIDOCAINE HCL 1% 20 ML VIAL ONE (18:31)
[2017-12-29] MEDS ORDERED: GLYCOPYRROLATE INJ 0.2 MG/ML VIAL ONE (18:41)
[2017-12-29] MEDS ORDERED: LARYING-O-JET KIT (LTA) ONE (18:41)
[2017-12-29] MEDS ORDERED: LIDOCAINE HCL 2% 2 ML VIAL (20MG/ML) ONE (18:41)
[2017-12-29] MEDS ORDERED: PROPOFOL IV EMULSION 10 MG/ML 20 ML VIAL ONE (18:41)
[2017-12-29] MEDS ORDERED: ROCURONIUM BROMIDE 10 MG/ML 5 ML VIAL ONE (18:41)
[2017-12-29] MEDS ORDERED: NEOSTIGMINE METHYLSULFATE 5 MG/5 ML SYR ONE (18:41)
[2017-12-29] MEDS ORDERED: ONDANSETRON INJ 2 MG/ML 2 ML VIAL ONE (18:41)
[2017-12-29] MEDS ORDERED: DEXAMETHASONE SOD INJ 4 MG/ML VIAL ONE (18:41)
[2017-12-29] MEDS ORDERED: CEFOXITIN SOD 1 GM VIAL ONE (18:42)
[2017-12-29] MEDS ORDERED: ONDANSETRON INJ 2 MG/ML 2 ML VIAL IV PRN (18:45)
[2017-12-29] MEDS ORDERED: HYDROmorphone INJ 0.5 MG/0.5 ML SYR IV PRN (18:45)
[2017-12-29] MEDS ORDERED: EpHEDrine SULFATE INJ 50 MG/ML AMP IV PRN (18:45)
[2017-12-29] MEDS ORDERED: MEPERIDINE HCL 25 MG/ML CARP IV PRN (18:45)
[2017-12-29] MEDS ORDERED: ATROPINE SULFATE 0.1 MG/ML 5ML SYR IV PRN (18:45)
[2017-12-29] MEDS ORDERED: LABETALOL HCL IV 5 MG/ML 20ML IV PRN (18:45)
[2017-12-29] MEDS ORDERED: BACITRACIN OP OINT 3.5 GM TUBE TOP ONE (19:31)
[2017-12-29] MEDS ORDERED: BUPIVACAINE 0.5 % 5 MG/1 ML MPF 30ML VIAL INJ ONE (19:33)
[2017-12-29] MEDS ORDERED: LIDOCAINE MPF 1% INJ 30 ML SDV (L&D) INFIL ONE (19:35)
[2017-12-29] MEDS ORDERED: ATROPINE SULFATE 0.4 MG/ML 1 ML VIAL ONE (19:37)
--- NOTE | 2017-12-29 19:42 | [facility] Post Operative Brief Note ---
Immediate Operative Summary Operative Date December 29, 2017. Pre-Operative Diagnosis Acute Appendicitis Post-Operative Diagnosis Acute Appendicitis Procedure(s) Performed Laparoscopic Appendectomy Surgeon Dr. Aguilera [employer] Surgeon(s) surgical specialist Estimated Blood Loss 5cc Findings Consistent with Post-Op Diagnosis Fluids (cc crystalloids) 1000ml Specimens A. Appendix Drains None Anesthesia Type General Complication(s) none Disposition Accompanied Pt To Recover: yes Disposition: Surgical ICU
--- NOTE | 2017-12-29 20:04 | Anesthesiology Progress Note ---
Anesthesia Post Op Note Date & Time December 29, 2017 at 20:03 Vital Signs Pain Intensity: 4 Vital Signs Past 12 Hours Date Time Temp Pulse Resp B/P (MAP) Pulse Ox O2 Delivery O2 Flow Rate FiO2 12/29/17 19:46 36.1 79 19 103/76 100 Room Air 12/29/17 16:40 100 Room Air 12/29/17 15:43 36.5 60 16 108/71 (83) 100 Room Air Notes Mental Status: alert / awake / arousable, participated in evaluation Pt Amnestic to Procedure: Yes Nausea / Vomiting: adequately controlled Pain: adequately controlled Airway Patency, RR, SpO2: stable & adequate BP & HR: stable & adequate Hydration State: stable & adequate Anesthetic Complications: no major complications apparent
[2017-12-29] MEDS: FENTANYL CITRATE INJ 50 MCG/1 ML 2 ML VIAL IV PRN ×2 (20:06→20:11)
--- NOTE | 2017-12-29 22:34 | Progress Note ---
Medicine Progress Note Date & Time of Visit: December 29, 2017 at 17:37. Subjective 37 yo F presented to the ER with severe diffuse abdominal pain radiating to her back along with nausea and was found to have acute appendicitis. General surgery was consulted but the patient refused disagreeing with the diagnosis initially. Ultimately she agreed to the OR today. As a result, she is currently n.p.o. She states her pain is improved she denies any nausea vomiting over night. Objective Last 8 Hrs Date Time Temp Pulse Resp B/P (MAP) Pulse Ox O2 Delivery O2 Flow Rate FiO2 12/29/17 16:40 100 Room Air 12/29/17 15:43 36.5 60 16 108/71 (83) 100 Room Air Physical Exam: GEN: WNWD, in no acute distress, alert and appropriate HEENT: NC/AT, normal sclerae, MMM CARDIO: reg rate, S1/2 heard without m/g/r LUNGS: CTA bilaterally, no crackles, rales or wheezes, good diaphragmatic excursion ABD: soft, diffuse TTP x in LUQ, non-distended, no rebound or guarding, +BS EXTREMITY: RP and DP palpable 2+ bilat, no LE swelling or edema, extremities are warm and well-perfused NEURO: CN 2-12 grossly intact, no gross focal deficits. MUSC: 5/5 strength throughout, no gross focal deficits SKIN: warm and dry Laboratory Results: 12/29/17 08:08 Red Blood Count 3.64, Mean Corpuscular Volume 88.7, Mean Corpuscular Hemoglobin 30.2, Mean Corpuscular Hemoglobin Concent 34.1, Mean Platelet Volume 9.7, Neutrophils (%) (Auto) 60.4, Lymphocytes (%) (Auto) 29.0, Monocytes (%) (Auto) 9.7, Eosinophils (%) (Auto) 0.5, Basophils (%) (Auto) 0.2, Neutrophils # (Auto) 3.42, Lymphocytes # (Auto) 1.64, Monocytes # (Auto) 0.55, Eosinophils # (Auto) 0.03, Basophils # (Auto) 0.01 12/29/17 08:08 Test 12/27/17 19:28 12/28/17 01:59 12/28/17 12:57 12/29/17 08:08 Urine Color YELLOW Urine Appearance CLEAR (CLEAR) Urine pH 5.5 (4.5-7.5) Urine Specific [place] 1.016 (1.000-1.030) Urine Protein NEG (NEG) Urine Glucose (UA) NEG (NEG) Urine Ketones 3+ (NEG) Urine Occult Blood NEG (NEG) Urine Nitrite NEG (NEG) Urine Bilirubin NEG (NEG) Urine Urobilinogen NEG (NEG) Urine Leukocyte Esterase NEG (NEG) Urine Test NEG (NEG) Direct Bilirubin 0.2 mg/dl (0-0.2) Lipase 98 U/L (73-393) Activated Partial Thromboplast Time 24.7 SECONDS (21.0-31.0) Partial Thromboplastin Ratio 1.0 D-Dimer < 190 ug/L FEU (0-500) Ionized Calcium 1.08 mmol/l (1.12-1.32) Phosphorus Level 2.8 mg/dl (2.5-4.9) Magnesium Level 2.0 mg/dl (1.8-2.4) White Blood Count 5.66 K/uL (4.8-10.8) Red Blood Count 3.64 M/uL (4.2-5.4) Hemoglobin 11.0 g/dL (12.0-16.0) Hematocrit 32.3 % (37-47) Mean Corpuscular Volume 88.7 fL (80-100) Mean Corpuscular Hemoglobin 30.2 pg (25-34) Mean Corpuscular Hemoglobin Concent 34.1 g/dl (32-36) Platelet Count 220 K/uL (130-400) Mean Platelet Volume 9.7 fL (7.4-10.4) Neutrophils (%) (Auto) 60.4 % Lymphocytes (%) (Auto) 29.0 % Monocytes (%) (Auto) 9.7 % Eosinophils (%) (Auto) 0.5 % Basophils (%) (Auto) 0.2 % Neutrophils # (Auto) 3.42 K/uL (1.4-6.5) Lymphocytes # (Auto) 1.64 K/uL (1.2-3.4) Monocytes # (Auto) 0.55 K/uL (0.11-0.59) Eosinophils # (Auto) 0.03 K/uL (0-0.5) Basophils # (Auto) 0.01 K/uL (0-0.2) RDW Standard Deviation 45.5 fL (36.4-46.3) RDW Coefficient of Variation 13.8 % (11.5-14.5) Immature Granulocyte % (Auto) 0.2 % Immature Granulocyte # (Auto) 0.01 K/uL (0.00-0.02) Anion Gap 5.0 mmol/L (3-11) Est Creatinine Clear Calc Drug Dose 116.7 ml/min Estimated GFR () 138.9 Estimated GFR (Non- 119.8 BUN/Creatinine Ratio 8.6 (10-20) Calcium Level 7.7 mg/dl (8.5-10.1) Total Bilirubin 0.5 mg/dl (0.2-1) Aspartate Amino Transf (AST/SGOT) 8 U/L (15-37) Alanine Aminotransferase (ALT/SGPT) 15 U/L (12-78) Alkaline Phosphatase 38 U/L (45-117) Total Protein 5.6 gm/dl (6.4-8.2) Albumin 3.1 gm/dl (3.4-5.0) Globulin 2.5 gm/dl (2.5-4.0) Albumin/Globulin Ratio 1.2 (0.9-2) Date/Time Source Procedure Growth Status 12/28/17 19:20 Stool WBC Smear - Final Complete Last 24 Hours Test 12/29/17 08:08 White Blood Count 5.66 K/uL Red Blood Count 3.64 M/uL Hemoglobin 11.0 g/dL Hematocrit 32.3 % Mean Corpuscular Volume 88.7 fL Mean Corpuscular Hemoglobin 30.2 pg Mean Corpuscular Hemoglobin Concent 34.1 g/dl Platelet Count 220 K/uL Mean Platelet Volume 9.7 fL Neutrophils (%) (Auto) 60.4 % Lymphocytes (%) (Auto) 29.0 % Monocytes (%) (Auto) 9.7 % Eosinophils (%) (Auto) 0.5 % Basophils (%) (Auto) 0.2 % Neutrophils # (Auto) 3.42 K/uL Lymphocytes # (Auto) 1.64 K/uL Monocytes # (Auto) 0.55 K/uL Eosinophils # (Auto) 0.03 K/uL Basophils # (Auto) 0.01 K/uL RDW Standard Deviation 45.5 fL RDW Coefficient of Variation 13.8 % Immature Granulocyte % (Auto) 0.2 % Immature Granulocyte # (Auto) 0.01 K/uL Sodium Level 142 mmol/L Potassium Level 3.6 mmol/L Chloride Level 112 mmol/L Carbon Dioxide Level 25 mmol/L Anion Gap 5.0 mmol/L Blood Urea Nitrogen 5 mg/dl Creatinine 0.55 mg/dl Est Creatinine Clear Calc Drug Dose 116.7 ml/min Estimated GFR () 138.9 Estimated GFR (Non- 119.8 BUN/Creatinine Ratio 8.6 Random Glucose 97 mg/dl Calcium Level 7.7 mg/dl Total Bilirubin 0.5 mg/dl Aspartate Amino Transf (AST/SGOT) 8 U/L Alanine Aminotransferase (ALT/SGPT) 15 U/L Alkaline Phosphatase 38 U/L Total Protein 5.6 gm/dl Albumin 3.1 gm/dl Globulin 2.5 gm/dl Albumin/Globulin Ratio 1.2 Date/Time Source Procedure Growth Status 12/28/17 19:20 Stool WBC Smear - Final Complete 12/28/17 19:20 Stool Shiga Toxin Test - Preliminary No E. Coli shiga toxin 1 or shiga tox... Resulted 12/28/17 19:20 Stool Stool Culture - Preliminary NO SALMONELLA ISOLATED TO DATE,... Resulted 12/28/17 19:20 Stool C.difficile Toxin B Gene (PCR) - Final No C. difficile toxin B gene detected Complete Assessment & Plan 37 yo F presented to the ER with severe diffuse abdominal pain radiating to her back along with nausea and was found to have acute appendicitis. General surgery was consulted but the patient refused disagreeing with the diagnosis initially. Ultimately she agreed to the OR today. As a result, she is currently n.p.o. She states her pain is improved she denies any nausea vomiting over night. 1. Acute appendicitis-pain is improved, continue antibiotics empirically for now. Proceed to the OR for appendix removal today. Stool studies have been negative. 2. h/o small bowel bacterial overgrowth-off antibiotics in Jul. Remains on probiotics which we will continue in the setting of new antibiotics. 3. Hypokalemia 2/2 diarrhea-replaced. DVT proph-SCDs Full Code Dispo-expect to go home in 1-2 days. Melissa Pollack DO [facility] Hospitalist Consultants: General Surgery-Dr. Aguilera Current Inpatient Medications: Current Inpatient Medications Medications (Trade) Dose Ordered Sig/Ambika Route Start Time Stop Time Status Last Admin Dose Admin Ioversol (Optiray 320) 125 ml UD PRN IV 12/27/17 20:30 12/31/17 20:29 Tramadol HCl (Ultram Tab) not relieved by tylenol @ Q6H PRN PO 12/28/17 00:00 01/27/18 00:00 Prochlorperazine Edisylate 5 mg/ Syringe 5 ml @ 5 mls/min Q6H PRN IV 12/28/17 00:00 01/27/18 00:00 12/28/17 06:23 5 MLS/MIN Ondansetron HCl (Zofran Inj) 4 mg Q6H PRN IV 12/28/17 00:00 01/27/18 00:00 Metoclopramide HCl (Reglan Inj) 10 mg Q6H PRN IV 12/28/17 00:00 01/27/18 00:00 12/28/17 01:46 10 MG Acetaminophen (Tylenol Tab) 650 mg Q4H PRN PO 12/28/17 01:00 01/27/18 00:59 Multivitamins/ Minerals (Multivitamin W/ Minerals Tab) 1 tab DAILY PO 12/28/17 08:00 01/27/18 08:59 12/28/17 08:14 1 TAB Morphine Sulfate (MoRPHine SULFATE INJ) 2 mg Q3H PRN IV 12/28/17 01:00 01/11/18 00:59 12/28/17 05:35 2 MG Lorazepam (Ativan Inj) 0.5 mg Q4H PRN IV 12/28/17 01:00 01/27/18 00:59 Miscellaneous (Iv Fluids Completed) 1 ea PRN PRN N/A 12/28/17 01:30 12/28/18 01:29 Metronidazole 500 mg/Prmx 100 ml @ 100 mls/hr Q8H IV 12/28/17 14:00 01/07/18 13:59 12/29/17 13:57 100 MLS/HR Ciprofloxacin/ Dextrose 400 mg/ Prmx 200 ml @ 100 mls/hr Q12 IV 12/28/17 14:00 01/07/18 13:59 12/29/17 08:18 100 MLS/HR Potassium Chloride/Dextrose/ Sod Cl 1,000 ml @ 80 mls/hr [id number] IV 12/28/17 14:00 01/27/18 13:59 12/29/17 13:57 80 MLS/HR Saccharomyces Boulardii (Florastor Cap) 250 mg DAILY PO 12/28/17 14:00 01/27/18 13:59 12/28/17 13:52 250 MG
[2017-12-30] MEDS: METRONIDAZOLE / NSS 500 MG in PREMIXED NSS 100 ML IV SCH ×2 (00:04→01:22)
[2017-12-30 00:24] VITALS: BP 106/71; PULSE 71; TEMP 37.2; O2SAT 98
[2017-12-30] MEDS ORDERED: ACETAMINOPHEN IV 100 ML IV ONE (00:45)
[2017-12-30 01:13] VITALS: O2SAT 100
[2017-12-30] MEDS ORDERED: LORAZEPAM INJ 0.5 MG in SYRINGE 0.75 ML IV PRN (01:15)
--- NOTE | 2017-12-30 01:47 | OPERATIVE REPORT ---
DATE OF OPERATION: 12/29/2017 PREOPERATIVE DIAGNOSIS: Acute appendicitis. POSTOPERATIVE DIAGNOSIS: Same. PROCEDURE: Laparoscopic appendectomy. SURGEON: Dr. Mariann Aguilera. ANESTHESIA: General. ESTIMATED BLOOD LOSS: About 5 mL. FINDINGS: Acute appendicitis. COMPLICATIONS: None. INDICATIONS FOR THE PROCEDURE: This is a 37-year-old female who is admitted to the hospital for abdominal pain. The patient had an ultrasound diagnosis of acute appendicitis, and the patient decided to do the laparoscopic appendectomy, possible open. I did talk to the patient about the benefits, risks, alternatives to procedure. I indicated the risks may include but not limited to bleeding, infection, injury to bowel, abscess. The patient understood, and she signed informed consent. I answered all questions. DETAILS OF PROCEDURE: We brought in the patient to the OR, put the patient in the supine position. The patient received SCD on bilateral legs to prevent DVT. Also, patient received 2 g cefoxitin IV for prophylactic antibiotic. The patient received general anesthesia without difficulty. The abdomen was appropriately draped in routine sterile fashion. After timeout, I injected the local anesthesia just above umbilicus by using 1% lidocaine mixed with 0.5% Marcaine. I then made a small incision just above umbilicus, opened fascia, opened peritoneum under direct vision, put a Jimmy trocar in, connected to CO2 to create pneumoperitoneum, flow rate is 6 L/min, pressure not more than 14 mmHg. Once we gave him nice pneumoperitoneum, we put the camera in, looked around the abdomen, and showed normal finding of the small bowel, large bowel, stomach, and liver. There was trace ascites at the pelvic area; however, the appendix was showing significant inflammation, swelling, and diagnosed with acute appendicitis, then I used harmonic to take down appendix and used 45 mm Endo-PRASAD staple transection at the base of appendix, rechecked, no active bleeding, no leak from the staple line. We then removed the appendix through the catch bag. We then reinserted Jimmy trocar and connected to CO2 to create pneumoperitoneum. Again looked around the abdomen, no active bleeding, no leak from staple line, then we removed all trocar under direct vision. No active bleeding from trocar sites. The pneumoperitoneum was released. I then closed the umbilical incision, fascial layer by using #1 Vicryl [id number] x2, subcutaneous layer by using 2-0 Vicryl interrupted, skin by using 4-0 Vicryl continuous running, closed another two 5 mm trocar sites, and the skin only by using 4-0 Vicryl, and we put the dressing on. The patient tolerated the procedure well. All the instruments, needles, and sponge counts correct x2 at the end of the case. The patient transferred to recovery room in stable condition. I talked to the patient and patient's family member about the OR findings and procedure we did. I attest to the content of the Intraoperative Record and any orders documented therein. Any exception s are noted below.
[2017-12-30] MEDS: D5NSS + 20MEQ KCL 1,000 ML IV SCH (03:39)
[2017-12-30 06:11] LABS: HEMATOCRIT 35.4 % (37-47); HEMOGLOBIN 12.1 g/dL (12.0-16.0); MEAN CELL VOLUME 88.7 fL (80-100); MEAN CORPUSCULAR HEMOGLOBIN 30.3 pg (25-34); MEAN CORPUSCULAR HGB CONC 34.2 g/dl (32-36); MEAN PLATELET VOLUME 9.9 fL (7.4-10.4); PLATELET COUNT 256 K/uL (130-400); RED CELL DISTRIBUTION WIDTH CV 13.5 % (11.5-14.5); RED CELL DISTRIBUTION WIDTH SD 44.5 fL (36.4-46.3); WHITE BLOOD COUNT 10.07 K/uL (4.8-10.8)
[2017-12-30 06:44] LABS: CREATININE 0.71 mg/dl (0.60-1.20); POTASSIUM 3.6 mmol/L (3.5-5.1)
[2017-12-30] MEDS ORDERED: OXYCODONE/ACETAMINOPHEN 5-325 TAB PO PRN (08:00)
[2017-12-30 08:04] VITALS: BP 90/56; PULSE 63; TEMP 36.9; O2SAT 98
[2017-12-30] MEDS: SACCHAROMYCES BOUL (FLORASTOR) 250 MG CAP PO SCH (08:54)
[2017-12-30] MEDS: CEROVITE ADV FORMULA TAB PO SCH ×2 (08:55→13:11)
[2017-12-30] MEDS: ACETAMINOPHEN 325 MG TAB PO PRN (08:55)
--- NOTE | 2017-12-30 11:42 | Progress Note ---
Medicine Progress Note Date & Time of Visit: December 30, 2017 at 11:36. Subjective 37 yo F presented to the ER with severe diffuse abdominal pain radiating to her back along with nausea and was found to have acute appendicitis. General surgery was consulted but the patient refused disagreeing with the diagnosis initially. Ultimately she agreed to the OR today yesterday. Diet was advanced to clears with no issues today. Overnight she received Ativan and also had general anesthesia yesterday...subseuqently she had urinary retention this morning requiring straight cath. No current pressure present. Reports some abdominal pain which is controlled with Tylenol. Objective Last 8 Hrs Date Time Temp Pulse Resp B/P (MAP) Pulse Ox O2 Delivery O2 Flow Rate FiO2 12/30/17 08:04 36.9 63 18 90/56 (67) 98 Room Air 12/30/17 08:00 Room Air Physical Exam: GEN: WNWD, in no acute distress, alert and appropriate HEENT: NC/AT, normal sclerae, MMM CARDIO: reg rate, S1/2 heard without m/g/r LUNGS: CTA bilaterally, no crackles, rales or wheezes, good diaphragmatic excursion ABD: soft, TTP in RLQ, dressing in place periumbilical region-c/d/i, non- distended, no rebound or guarding, +BS EXTREMITY: RP and DP palpable 2+ bilat, no LE swelling or edema, extremities are warm and well-perfused NEURO: CN 2-12 grossly intact, no gross focal deficits. MUSC: 5/5 strength throughout, no gross focal deficits SKIN: warm and dry Laboratory Results: 12/30/17 05:35 12/30/17 05:35 Test 12/27/17 19:28 12/28/17 01:59 12/28/17 12:57 12/29/17 08:08 Urine Color YELLOW Urine Appearance CLEAR (CLEAR) Urine pH 5.5 (4.5-7.5) Urine Specific [place] 1.016 (1.000-1.030) Urine Protein NEG (NEG) Urine Glucose (UA) NEG (NEG) Urine Ketones 3+ (NEG) Urine Occult Blood NEG (NEG) Urine Nitrite NEG (NEG) Urine Bilirubin NEG (NEG) Urine Urobilinogen NEG (NEG) Urine Leukocyte Esterase NEG (NEG) Urine Test NEG (NEG) Direct Bilirubin 0.2 mg/dl (0-0.2) Lipase 98 U/L (73-393) Activated Partial Thromboplast Time 24.7 SECONDS (21.0-31.0) Partial Thromboplastin Ratio 1.0 D-Dimer < 190 ug/L FEU (0-500) Ionized Calcium 1.08 mmol/l (1.12-1.32) Phosphorus Level 2.8 mg/dl (2.5-4.9) Magnesium Level 2.0 mg/dl (1.8-2.4) Immature Granulocyte % (Auto) 0.2 % White Blood Count 5.66 K/uL (4.8-10.8) Red Blood Count 3.64 M/uL (4.2-5.4) Hemoglobin 11.0 g/dL (12.0-16.0) Hematocrit 32.3 % (37-47) Mean Corpuscular Volume 88.7 fL (80-100) Mean Corpuscular Hemoglobin 30.2 pg (25-34) Mean Corpuscular Hemoglobin Concent 34.1 g/dl (32-36) Platelet Count 220 K/uL (130-400) Mean Platelet Volume 9.7 fL (7.4-10.4) Neutrophils (%) (Auto) 60.4 % Lymphocytes (%) (Auto) 29.0 % Monocytes (%) (Auto) 9.7 % Eosinophils (%) (Auto) 0.5 % Basophils (%) (Auto) 0.2 % Neutrophils # (Auto) 3.42 K/uL (1.4-6.5) Lymphocytes # (Auto) 1.64 K/uL (1.2-3.4) Monocytes # (Auto) 0.55 K/uL (0.11-0.59) Eosinophils # (Auto) 0.03 K/uL (0-0.5) Basophils # (Auto) 0.01 K/uL (0-0.2) Immature Granulocyte # (Auto) 0.01 K/uL (0.00-0.02) Total Bilirubin 0.5 mg/dl (0.2-1) Aspartate Amino Transf (AST/SGOT) 8 U/L (15-37) Alanine Aminotransferase (ALT/SGPT) 15 U/L (12-78) Alkaline Phosphatase 38 U/L (45-117) Total Protein 5.6 gm/dl (6.4-8.2) Albumin 3.1 gm/dl (3.4-5.0) Globulin 2.5 gm/dl (2.5-4.0) Albumin/Globulin Ratio 1.2 (0.9-2) Test 12/30/17 05:35 Red Blood Count 3.99 M/uL (4.2-5.4) Mean Corpuscular Volume 88.7 fL (80-100) Mean Corpuscular Hemoglobin 30.3 pg (25-34) Mean Corpuscular Hemoglobin Concent 34.2 g/dl (32-36) RDW Standard Deviation 44.5 fL (36.4-46.3) RDW Coefficient of Variation 13.5 % (11.5-14.5) Mean Platelet Volume 9.9 fL (7.4-10.4) Anion Gap 7.0 mmol/L (3-11) Est Creatinine Clear Calc Drug Dose 90.4 ml/min Estimated GFR () 126.1 Estimated GFR (Non- 108.8 BUN/Creatinine Ratio 5.5 (10-20) Calcium Level 8.0 mg/dl (8.5-10.1) Date/Time Source Procedure Growth Status 12/28/17 19:20 Stool WBC Smear - Final Complete Last 24 Hours Test 12/30/17 05:35 White Blood Count 10.07 K/uL Red Blood Count 3.99 M/uL Hemoglobin 12.1 g/dL Hematocrit 35.4 % Mean Corpuscular Volume 88.7 fL Mean Corpuscular Hemoglobin 30.3 pg Mean Corpuscular Hemoglobin Concent 34.2 g/dl RDW Standard Deviation 44.5 fL RDW Coefficient of Variation 13.5 % Platelet Count 256 K/uL Mean Platelet Volume 9.9 fL Sodium Level 138 mmol/L Potassium Level 3.6 mmol/L Chloride Level 107 mmol/L Carbon Dioxide Level 24 mmol/L Anion Gap 7.0 mmol/L Blood Urea Nitrogen 4 mg/dl Creatinine 0.71 mg/dl Est Creatinine Clear Calc Drug Dose 90.4 ml/min Estimated GFR () 126.1 Estimated GFR (Non- 108.8 BUN/Creatinine Ratio 5.5 Random Glucose 124 mg/dl Calcium Level 8.0 mg/dl Assessment & Plan 37 yo F presented to the ER with severe diffuse abdominal pain radiating to her back along with nausea and was found to have acute appendicitis. General surgery was consulted but the patient refused disagreeing with the diagnosis initially. Ultimately she agreed to the OR today yesterday. Diet was advanced to clears with no issues today. Overnight she received Ativan and also had general anesthesia yesterday...subseuqently she had urinary retention this morning requiring straight cath. No current pressure present. Reports some abdominal pain which is controlled with Tylenol. 1. Acute appendicitis-pain is improved, continue antibiotics empirically for now. Proceed to the OR for appendix removal today. Stool studies have been negative. 2. h/o small bowel bacterial overgrowth-off antibiotics in Jul. Remains on probiotics which we will continue in the setting of new antibiotics. Pt is requesting to stay on abx just until probiotics build up in her system. I promised her I would discuss with GI, however, denied this request as antibiotics are not indicated with effective source control yesterday. 3. Acute urinary retention 2/2/ medications (Ativan/general anesthesia yesterday)-one time straight cath this am. Ativan discontinued. Expect her to spontaneously void here soon when medication effect is totally metabolized. If retaining again, may place [place] until tomorrow. Will check UA on next void to ensure no new infection. ADDENDUM: I did speak with GI group who does not recommend additional antibiotics at this time. DVT proph-SCDs Full Code Dispo-expect to go home later today or tomorrow. Melissa Pollack DO [facility] Hospitalist Consultants: General Surgery-Dr. Aguilera Current Inpatient Medications: Current Inpatient Medications Medications (Trade) Dose Ordered Sig/Ambika Route Start Time Stop Time Status Last Admin Dose Admin Ioversol (Optiray 320) 125 ml UD PRN IV 12/27/17 20:30 12/31/17 20:29 Tramadol HCl (Ultram Tab) not relieved by tylenol @ Q6H PRN PO 12/28/17 00:00 01/27/18 00:00 Prochlorperazine Edisylate 5 mg/ Syringe 5 ml @ 5 mls/min Q6H PRN IV 12/28/17 00:00 01/27/18 00:00 12/28/17 06:23 5 MLS/MIN Ondansetron HCl (Zofran Inj) 4 mg Q6H PRN IV 12/28/17 00:00 01/27/18 00:00 Metoclopramide HCl (Reglan Inj) 10 mg Q6H PRN IV 12/28/17 00:00 01/27/18 00:00 12/28/17 01:46 10 MG Acetaminophen (Tylenol Tab) 650 mg Q4H PRN PO 12/28/17 01:00 01/27/18 00:59 12/30/17 08:55 650 MG Multivitamins/ Minerals (Multivitamin W/ Minerals Tab) 1 tab DAILY PO 12/28/17 08:00 01/27/18 08:59 12/30/17 08:55 1 TAB Morphine Sulfate (MoRPHine SULFATE INJ) 2 mg Q3H PRN IV 12/28/17 01:00 01/11/18 00:59 12/28/17 05:35 2 MG Miscellaneous (Iv Fluids Completed) 1 ea PRN PRN N/A 12/28/17 01:30 12/28/18 01:29 12/30/17 09:00 1 EA Saccharomyces Boulardii (Florastor Cap) 250 mg DAILY PO 12/28/17 14:00 01/27/18 13:59 12/30/17 08:54 250 MG Lorazepam 0.5 mg/ Syringe 1 ml @ 1 mls/min Q4H PRN IV 12/30/17 01:15 01/29/18 01:14 12/30/17 01:22 1 MLS/MIN Oxycodone/ Acetaminophen (Percocet 5-325mg Tab) 1 tab Q4H PRN PO 12/30/17 08:00 01/13/18 07:59 Oxycodone/ Acetaminophen (Percocet 5-325mg Tab) 2 tab Q4H PRN PO 12/30/17 08:00 01/13/18 07:59
[2017-12-30] MEDS: OXYCODONE/ACETAMINOPHEN 5-325 TAB PO PRN ×3 (13:11→21:43)
[2017-12-30 16:02] VITALS: BP 102/67; PULSE 71; TEMP 36.7; O2SAT 100
[2017-12-30 16:09] VITALS: O2SAT 100
--- NOTE | 2017-12-30 16:46 | Surgery Progress Note ---
Surgery Progress Note Date of Service December 30, 2017. Subjective Post OP Day: 1 (s/p laparoscopic appendectomy) moderate pain, controlled no nausea or vomiting tolerated clears preoperative pain has resolved no fevers or chills Objective Vital Signs: Date Time Temp Pulse Resp B/P (MAP) Pulse Ox O2 Delivery O2 Flow Rate FiO2 12/30/17 16:02 36.7 71 16 102/67 (79) 100 12/30/17 08:04 36.9 63 18 90/56 (67) 98 Room Air 12/30/17 08:00 Room Air 12/30/17 01:13 100 Room Air 12/30/17 00:24 37.2 71 16 106/71 (83) 98 2.0 12/29/17 21:57 98 Room Air 12/29/17 21:00 Room Air 12/29/17 20:56 36.9 73 16 114/76 (89) 98 Room Air 12/29/17 20:42 37.0 80 14 137/86 (103) 97 Room Air 12/29/17 20:25 36.8 69 14 126/73 98 Room Air 12/29/17 20:15 69 16 125/78 98 Room Air 12/29/17 20:05 70 18 141/66 98 Room Air 12/29/17 19:55 75 18 101/71 100 Room Air 12/29/17 19:46 36.1 79 19 103/76 100 Room Air 12/29/17 16:40 100 Room Air General Appearance: WD/WN, no apparent distress Head: normocephalic, atraumatic Neck: trachea midline Respiratory/Chest: no respiratory distress, no accessory muscle use Abdomen: non distended, soft, no organomegaly, no pulsatile mass, + tenderness (appropriate post op, no peritonitis) Incision(s): clean, dry (dressings clean and dry) Extremities: no pedal edema Laboratory Results: Results Past 24 Hours Test 12/30/17 00:00 12/30/17 05:35 12/30/17 13:13 Range/Units Urine Color YELLOW Urine Appearance CLEAR CLEAR Urine pH 7.0 4.5-7.5 Urine Specific [place] 1.010 1.000-1.030 Urine Protein NEG NEG Urine Glucose (UA) NEG NEG Urine Ketones NEG NEG Urine Occult Blood NEG NEG Urine Nitrite NEG NEG Urine Bilirubin NEG NEG Urine Urobilinogen NEG NEG Urine Leukocyte Esterase SMALL NEG Urine WBC (Auto) 5-10 0-5 /hpf Urine RBC (Auto) 0-4 0-4 /hpf Urine Hyaline Casts (Auto) 1-5 0-5 /lpf Urine Epithelial Cells (Auto) >30 0-5 /lpf Urine Bacteria (Auto) 1+ NEG White Blood Count 10.07 4.8-10.8 K/uL Red Blood Count 3.99 4.2-5.4 M/uL Hemoglobin 12.1 12.0-16.0 g/dL Hematocrit 35.4 37-47 % Mean Corpuscular Volume 88.7 80-100 fL Mean Corpuscular Hemoglobin 30.3 25-34 pg Mean Corpuscular Hemoglobin Concent 34.2 32-36 g/dl RDW Standard Deviation 44.5 36.4-46.3 fL RDW Coefficient of Variation 13.5 11.5-14.5 % Platelet Count 256 130-400 K/uL Mean Platelet Volume 9.9 7.4-10.4 fL Sodium Level 138 136-145 mmol/L Potassium Level 3.6 3.5-5.1 mmol/L Chloride Level 107 98-107 mmol/L Carbon Dioxide Level 24 21-32 mmol/L Anion Gap 7.0 3-11 mmol/L Blood Urea Nitrogen 4 7-18 mg/dl Creatinine 0.71 0.60-1.20 mg/dl Est Creatinine Clear Calc Drug Dose 90.4 ml/min Estimated GFR () 126.1 Estimated GFR (Non- 108.8 BUN/Creatinine Ratio 5.5 10-20 Random Glucose 124 70-99 mg/dl Calcium Level 8.0 8.5-10.1 mg/dl 25-Hydroxy Vitamin D Total 30.9 30-100 ng/ml Assessment & Plan Postop day #1 status post laparoscopic appendectomy Vital signs stable, afebrile, no leukocytosis Abdominal pain moderate and controlled Had some urinary retention this morning Tolerating clear diet Plan: Continue p.o. Percocet with Tylenol as needed May advance diet as tolerated Does not require any further antibiotics continue current medical management OOB to chair and ambulation okay to discharge from surgical standpoint, f/u in surgical office in [address] Aguilera has seen and examined patient, agrees with above
--- NOTE | 2017-12-30 16:48 | Consultant Recommendations ---
[employer] Recommendations Date of Service December 30, 2017. [employer] Recommendations No heavy lifting over 20 pounds for 3 weeks No strenuous activity until cleared by surgeon No submerging incisions underwater for 2 weeks (no bathing, swimming, or hot tubs) No driving while taking narcotic pain medication or until you are pain free You may shower and 4 days. Sponge bath and wash hair and meantime. Try to keep dressing clean and dry. After 4 days you may shower and remove outer dressings. Leave Steri-Strips on incisions for 7 days and then remove. They may fall off a monitor and that is okay. Walking and light activity is encouraged to prevent blood clots from forming He will be giving narcotic pain medication as needed for pain. Take as directed. This medication may cause drowsiness and constipation. To combat constipation: Take [id number] stool softener daily while taking narcotics Drink plenty of water May take gentle laxative or prune juice if needed Follow-up in surgical office in 1 week. Please call office at [phone] to make an appointment.
[2017-12-30] MEDS ORDERED: OXYC-57 PO (16:49)
[2017-12-30 23:09] VITALS: BP 102/60; PULSE 62; TEMP 36.8; O2SAT 96
[2017-12-31] MEDS: ACETAMINOPHEN 325 MG TAB PO PRN ×2 (03:22→07:51)
[2017-12-31 07:35] VITALS: BP 99/64; PULSE 61; TEMP 36.8; O2SAT 98
[2017-12-31] MEDS: SACCHAROMYCES BOUL (FLORASTOR) 250 MG CAP PO SCH (07:51)
[2017-12-31] MEDS: CEROVITE ADV FORMULA TAB PO SCH (07:51)
[2017-12-31 08:10] VITALS: O2SAT 100
--- NOTE | 2017-12-31 11:52 | Surgery Progress Note ---
Surgery Progress Note Date of Service December 31, 2017. Subjective Post OP Day: 2 (s/p laparoscopic appendectomy) + feeling well, + complaints (some anxiety after taking percocet, controls pain fine), + ambulating, + pain controlled, + diet, No chest pain, No SOB, No nausea , No vomiting urinating is better today, able to void on her own Objective Vital Signs: Date Time Temp Pulse Resp B/P (MAP) Pulse Ox O2 Delivery O2 Flow Rate FiO2 12/31/17 08:10 100 Room Air 12/31/17 07:35 36.8 61 18 99/64 (76) 98 Room Air 12/31/17 00:40 Room Air 12/30/17 23:09 36.8 62 16 102/60 (74) 96 Room Air 12/30/17 16:09 100 Room Air 12/30/17 16:02 36.7 71 16 102/67 (79) 100 General Appearance: WD/WN, no apparent distress Head: normocephalic, atraumatic Neck: trachea midline Respiratory/Chest: no respiratory distress, no accessory muscle use Abdomen: non distended, soft, no organomegaly, no pulsatile mass, + tenderness (at incision sites appropriate post op) Incision(s): clean, dry (dressings) Laboratory Results: Results Past 24 Hours Test 12/30/17 13:13 Range/Units 25-Hydroxy Vitamin D Total 30.9 30-100 ng/ml Assessment & Plan Postop day #2 status post laparoscopic appendectomy Vital signs stable, afebrile, no leukocytosis Abdominal pain moderate and controlled Had some urinary retention yesterday, resolving Tolerating clear diet Plan: Continue p.o. Percocet with Tylenol as needed. May trial tramadol (already ordered prn) Does not require any further antibiotics continue current medical management OOB to chair and ambulation okay to discharge from surgical standpoint, f/u in surgical office in 1 week discharge instructions reviewed Dr. Aguilera has seen and examined patient, agrees with above
[2017-12-31] MEDS ORDERED: ULT50X PO (15:30)
[2017-12-31] MEDS ORDERED: SACC250C3 PO (15:30)
[2017-12-31] MEDS ORDERED: LORA-741 PO (15:31)
--- NOTE | 2017-12-31 15:33 | Discharge Instructions ---
Discharge Instructions Date of Service December 31, 2017. Admission Reason for Admission: Abdominal Pain Discharge Discharge Diagnosis / Problem: appendictitis s/p surgery Discharge Goals Goal(s): Decrease discomfort, Improve function Activity Recommendations Activity Limitations: resume your previous activity . Instructions / Follow-Up Instructions / Follow-Up FOLLOWUP WITH FAMILY DOCTOR ON December AT 9:35AM FOLLOWUP WITH SURGERY IN ONE WEEK SURGERY DISCHARGE RECOMMENDATIONS: [employer] Recommendations No heavy lifting over 20 pounds for 3 weeks No strenuous activity until cleared by surgeon No submerging incisions underwater for 2 weeks (no bathing, swimming, or hot tubs) No driving while taking narcotic pain medication or until you are pain free You may shower and 4 days. Sponge bath and wash hair and meantime. Try to keep dressing clean and dry. After 4 days you may shower and remove outer dressings. Leave Steri-Strips on incisions for 7 days and then remove. They may fall off a monitor and that is okay. Walking and light activity is encouraged to prevent blood clots from forming He will be giving narcotic pain medication as needed for pain. Take as directed. This medication may cause drowsiness and constipation. To combat constipation: Take [id number] stool softener daily while taking narcotics Drink plenty of water May take gentle laxative or prune juice if needed Follow-up in surgical office in 1 week. Please call office at [phone] to make an appointment. Current Hospital Diet Patient's current hospital diet: Gluten Free Diet, Regular Diet, Low Lactose Diet Discharge Diet Recommended Diet: Regular Diet, Gluten Free Diet, Low Lactose Diet Procedures Procedures Performed: Laparoscopic Appendectomy Pending Studies Studies pending at discharge: no Laboratory Results Hemoglobin A1c Test 10/18/17 13:39 Range/Units Estimated Average Glucose 103 mg/dl Hemoglobin A1c 5.2 4.5-5.6 % Lipid Panel Test 10/18/17 13:39 Range/Units Triglycerides Level 86 0-150 mg/dl Cholesterol Level 173 0-200 mg/dl HDL Cholesterol 93 mg/dl Cholesterol/HDL Ratio 1.9 LDL Cholesterol, Calculated 63 mg/dl Medical Emergencies . Who to Call and When: Medical Emergencies: If at any time you feel your situation is an emergency, please call 911 immediately. . Non-Emergent Contact Non-Emergency issues call your: Primary Care Provider . . "Provider Documentation" section prepared by Jesus Solis. . [employer] Recommendations [employer] Recommendations: No heavy lifting over 20 pounds for 3 weeks No strenuous activity until cleared by surgeon No submerging incisions underwater for 2 weeks (no bathing, swimming, or hot tubs) No driving while taking narcotic pain medication or until you are pain free You may shower and 4 days. Sponge bath and wash hair and meantime. Try to keep dressing clean and dry. After 4 days you may shower and remove outer dressings. Leave Steri-Strips on incisions for 7 days and then remove. They may fall off a monitor and that is okay. Walking and light activity is encouraged to prevent blood clots from forming He will be giving narcotic pain medication as needed for pain. Take as directed. This medication may cause drowsiness and constipation. To combat constipation: Take [id number] stool softener daily while taking narcotics Drink plenty of water May take gentle laxative or prune juice if needed Follow-up in surgical office in 1 week. Please call office at [phone] to make an appointment.
[2017-12-31] MEDS ORDERED: SENN8.6T7 PO (15:34)
[2017-12-31 15:49] VITALS: BP 99/64; PULSE 61; TEMP 36.8; O2SAT 100
[2017-12-31 15:51] VITALS: BP 110/74; PULSE 69; TEMP 36.9; O2SAT 99
--- NOTE | 2017-12-31 19:15 | Progress Note ---
Internal Med Progress Note Date of Service: December 31, 2017. Provider Documentation: SUBJECTIVE: resting comfortably has some pain at surgery site eating ok not moved bowels yet afebrile says on and off anxious since surgery ambulating urinary retention improved wants to go home OBJECTIVE: Vital Signs-as noted below Exam: General-alert and oriented. Not in distress. ENT-Normal hearing Neck-no neck masses Lungs-cta b/l no wheezing no crackles Heart-s1 and s2 heard regular rate and rhythm no murmurs Abdomen-soft bowel sounds present s/p surgery dressing clean no distension Extremities-no edema no erythema Neuro-alert and awake 'moves extremities Lab data as noted below. ASSESSMENT & PLAN: 37 yo F presented to the ER with severe diffuse abdominal pain radiating to her back along with nausea and was found to have acute appendicitis. 1. Acute appendicitis-s/p surgery.off of abx. tolerating diet. Surgery ok for discharge. 2. h/o small bowel bacterial overgrowth-off antibiotics in Jul. on probiotics. 3. Acute urinary retention 2/2/ medications (Ativan/general anesthesia yesterday)- s/p one time straight cath improved discharged home Vital Signs: Date Time Temp Pulse Resp B/P (MAP) Pulse Ox O2 Delivery O2 Flow Rate FiO2 12/31/17 15:51 36.9 69 16 110/74 (86) 99 Room Air 12/31/17 15:49 36.8 61 18 100 Room Air 12/31/17 08:10 100 Room Air 12/31/17 07:35 36.8 61 18 99/64 (76) 98 Room Air 12/31/17 00:40 Room Air 12/30/17 23:09 36.8 62 16 102/60 (74) 96 Room Air
--- NOTE | 2017-12-31 19:53 | Discharge Summary ---
Discharge Summary Date of Service December 31, 2017. 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 Very limited study as the colon is not opacified with oral contrast. 2. The appendix is not identified with absolute certainty with a suggestion raised of possible mild degree of colonic wall thickening versus technical artifact raised.. 3. It Is recommended this study be repeated with oral contrast to confirm or exclude the possibility of colitis versus appendicitis . ABDOMINAL US; Partially imaged fluid-filled tubular structure of the right lower quadrant measuring 1.2 cm with thickened wall suggests dilated inflamed appendix. CT ABD/PELVIS 12/28/17: 1. Evaluation for acute inflammatory changes is limited as no intravenous contrast was administered 2. No evidence of bowel obstruction. No evidence of free air 3. The appendix was not visualized with certainty. There are however subtle pericecal inflammatory changes. Given the ultrasound findings of earlier in the day, acute appendicitis must be considered and surgical consultation is recommended S/P LAP APPENDECTOMY Consultations: General Surgery-Dr. Aguilera Medication Reconciliation New Medications: Lorazepam (Ativan) 0.5 Mg Tab 0.5 MG PO BID PRN for Anxiety, #10 TAB Sennosides-Docusate Sodium (Senokot S) 1 Tab Tab 2 TAB PO HS, #30 TAB Saccharomyces Boulardii (Florastor) 250 Mg Cap 250 MG PO DAILY, #14 CAP Tramadol HCl (Tramadol HCl) 50 Mg Tab 25-50 MG PO Q6H PRN for Pain, #20 TAB Continued Medications: Albuterol Sulfate (Proair Respiclick) 108 Mcg/Act Aer PUFF INH PRN UD Cholecalciferol (Vitamin D) 5,000 Unit Tab 5000 UNITS PO DAILY Milk Thistle (Silybum Marianum (Milk Thistle) Unknown Strength Cap 1 CAP PO DAILY Multivitamins/Minerals (Mvi With Minerals) Tab 1 TAB PO DAILY, TAB Turmeric (Curcuma Longa) (Turmeric) Unknown Strength Cap 1 TAB PO DAILY Discontinued Medications: [Gold Seal] () 1 TAB PO DAILY [Orthobiotic] () 1 CAP PO DAILY Admission Information HPI (per Admitting provider): History obtained from the patient and records. 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 Few days history of epigastric pain, burning, nausea, loose stools. Denies sick contacts. Some chills. No recent travel. No recent antibiotics. Denies dysuria. Intractable pain at the Emergency Room. Medical history as above. : Seen at PCP's office a few months ago. Outpatient workup for exertional shortness of breath symptoms pending. Physical Exam (per Admitting): VITAL SIGNS: Blood pressure was noted to be 120/80, pulse rate 80, RR 16, T 37 O2 sats 100 on room air. GENERAL: Noted to be uncomfortable, no acute distress. SKIN: Normal color, warm. hyposthenic. HEENT : [place] palpebral conjunctivae, no ptosis, dry buccal mucosa NECK: Supple, nontender. CHEST: Clear to auscultation. HEART: Regular rate and rhythm, no murmur. ABDOMEN: Epigastric tenderness, some distention. EXTREMITIES: No edema. No tenderness, no gross deformities NEUROLOGIC: Coherent, no facial asymmetry, no gross focality. Hospital Course 37 yo F presented to the ER with severe diffuse abdominal pain radiating to her back along with nausea and was found to have acute appendicitis. 1. Acute appendicitis-s/p surgery.off of abx. tolerating diet. Surgery ok for discharge. 2. h/o small bowel bacterial overgrowth-off antibiotics in Jul. on probiotics. 3. Acute urinary retention 2/2/ medications (Ativan/general anesthesia yesterday)- s/p one time straight cath improved 4. ANXIETY. HAS HISTORY. BUT NOT ON ANY MEDS. POST OP FEELING ANXIOUS. ATIVAN PRN FOR NOW. F/U WITH PCP discharged home Total time spent on discharge = 35MINUTES This includes examination of the patient, discharge planning, medication reconciliation, and communication with other providers. Discharge Instructions Discharge Instructions Date of Service December 31, 2017. Admission Reason for Admission: Abdominal Pain Discharge Discharge Diagnosis / Problem: appendictitis s/p surgery Discharge Goals Goal(s): Decrease discomfort, Improve function Activity Recommendations Activity Limitations: resume your previous activity . 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 Sponge bath and wash hair and meantime. Try to keep dressing clean and dry. After 4 days you may shower and remove outer dressings. Leave Steri-Strips on incisions for 7 days and then remove. They may fall off a monitor and that is okay. Walking and light activity is encouraged to prevent blood clots from forming He will be giving narcotic pain medication as needed for pain. Take as directed. This medication may cause drowsiness and constipation. To combat constipation: Take [id number] stool softener daily while taking narcotics Drink plenty of water May take gentle laxative or prune juice if needed Follow-up in surgical office in 1 week. Please call office at [phone] to make an appointment. Current Hospital Diet Patient's current hospital diet: Gluten Free Diet, Regular Diet, Low Lactose Diet Discharge Diet Recommended Diet: Regular Diet, Gluten Free Diet, Low Lactose Diet Procedures Procedures Performed: Laparoscopic Appendectomy Pending Studies Studies pending at discharge: no Laboratory Results Hemoglobin A1c Test 10/18/17 13:39 Range/Units Estimated Average Glucose 103 mg/dl Hemoglobin A1c 5.2 4.5-5.6 % Lipid Panel Test 10/18/17 13:39 Range/Units Triglycerides Level 86 0-150 mg/dl Cholesterol Level 173 0-200 mg/dl HDL Cholesterol 93 mg/dl Cholesterol/HDL Ratio 1.9 LDL Cholesterol, Calculated 63 mg/dl Medical Emergencies . Who to Call and When: Medical Emergencies: If at any time you feel your situation is an emergency, please call 911 immediately. . Non-Emergent Contact Non-Emergency issues call your: Primary Care Provider . . "Provider Documentation" section prepared by Jesus Solis. . Grinding Machine Operator Portable Recommendations Grinding Machine Operator Portable Recommendations: No heavy lifting over 20 pounds for 3 weeks No strenuous activity until cleared by surgeon No submerging incisions underwater for 2 weeks (no bathing, swimming, or hot tubs) No driving while taking narcotic pain medication or until you are pain free You may shower and 4 days. Sponge bath and wash hair and meantime. Try to keep dressing clean and dry. After 4 days you may shower and remove outer dressings. Leave Steri-Strips on incisions for 7 days and then remove. They may fall off a monitor and that is okay. Walking and light activity is encouraged to prevent blood clots from forming He will be giving narcotic pain medication as needed for pain. Take as directed. This medication may cause drowsiness and constipation. To combat constipation: Take [id number] stool softener daily while taking narcotics Drink plenty of water May take gentle laxative or prune juice if needed Follow-up in surgical office in 1 week. Please call office at [phone] to make an appointment.
== END 2017-12-31 16:22 | disposition home or self-care (01) | DRG 343 ==
LOC: C.EDB 19:13 → C.MS4W 12-28 00:48 → ENRESERV 12-28 01:06 → C.MS4W 12-29 20:37 → OBSVTOIN 12-30 12:50
PROVIDERS: ADMIT Internal Medicine; ATTEND Internal Medicine
PROC: 0DTJ4ZZ Resection of Appendix, Percutaneous Endoscopic Approach (ICD-10-PCS; principal; 2017-12-29 14:45)
DX: K35.80 Unspecified acute appendicitis (principal); Z82.49 Family history of ischemic heart disease and other diseases of the circulatory system; R10.9 Unspecified abdominal pain; R19.7 Diarrhea, unspecified; E87.6 Hypokalemia; K37 Unspecified appendicitis